=== PATIENT | male | born 1940 | race Caucasian/White ===

== ENCOUNTER 2018-01-31 11:17 | Emergency (ER) | payer OTHER ==
[2018-01-31 19:35] LABS: ADD MAN DIFF? NO
[2018-01-31 19:36] LABS: ABNORMAL IP MESSAGE 1; BASOPHILS % 0.5 % (0.0-2.0); HEMATOCRIT 45.1 % (42.0-52.0); HEMOGLOBIN 15.2 g/dl (14.0-18.0); LYMPHOCYTES # 0.6 10^3/ul (0.8-2.9); LYMPHOCYTES % 13.6 % (15.0-51.0); MEAN CORPUSCULAR HEMOGLOBIN 30.5 pg (29.0-33.0); MEAN CORPUSCULAR HGB CONC 33.7 g/dl (32.0-37.0); MEAN CORPUSCULAR VOLUME 90.4 fl (82.0-101.0); MEAN PLATELET VOLUME 11.1 fl (7.4-10.4); MONOCYTE # 0.6 10^3/ul (0.3-0.9); MONOCYTES % 12.6 % (0.0-11.0); NEUTROPHIL # 3.1 10^3/ul (1.6-7.5); NEUTROPHILS % 71.2 % (39.0-77.0); PLATELET COUNT 134 10^3/UL (140-415); POSITIVE DIFF @See below; RED BLOOD COUNT 4.99 10^6/ul (4.70-6.10); RED CELL DISTRIBUTION WIDTH 12.8 % (11.5-14.5)
[2018-01-31 19:36] LABS: WHITE BLOOD COUNT 4.4 10^3/ul (4.8-10.8)
[2018-01-31] MEDS: morphine 4 MG/ML VIAL IV (19:41)
[2018-01-31] MEDS: SOD CHLORIDE 0.9% 1,000 ML IV (19:42)
[2018-01-31 19:52] LABS: INR 0.94; PROTIME 12.7 Sec (11.9-14.9)
[2018-01-31 19:53] LABS: PARTIAL THROMBOPLASTIN TIME 32.3 Sec (25.0-35.0)
[2018-01-31 20:00] LABS: LACTIC ACID 1.6 mmol/L (0.5-2.0)
[2018-01-31 20:00] LABS: ANION GAP 17 (8-16); BLOOD UREA NITROGEN 34 mg/dl (7-20); CALCIUM 8.9 mg/dl (8.4-10.2); CARBON DIOXIDE 25 mmol/L (21-31); CHLORIDE 105 mmol/L (97-110); CREATININE 1.31 mg/dl (0.61-1.24); GLUCOSE 87 mg/dl (70-220); POTASSIUM 4.3 mmol/L (3.5-5.1); SODIUM 143 mmol/L (135-144)
[2018-01-31] MEDS: PIPER-TAZO 3.375 GM IV (PMX) 100 ML IVPB (21:01)
[2018-01-31] MEDS: SOD CHLORIDE 0.9% 100 ML (21:34)
[2018-01-31] MEDS: IODIXANOL LOCM 100 ML BTL (21:34)
[2018-01-31] MEDS: IODIXANOL LOCM 50 ML BTL (21:35)
[2018-01-31] MEDS: VANCOMYCIN 1 GM (PMX) 250 ML IVPB (21:57)
[2018-01-31 22:55] LABS: LACTIC ACID 1.3 mmol/L (0.5-2.0)
== END 2018-02-01 01:10 | disposition home or self-care (01) ==
LOC: E/R 02-01 01:10
DX: I73.9 Peripheral vascular disease, unspecified (principal); N28.9 Disorder of kidney and ureter, unspecified; I10 Essential (primary) hypertension
CPT/HCPCS: 36415; 73706; 80048; 82962; 83605; 85025; 85610; 85730; 87040; 93005; 96374; 96375; 99285-25

== ENCOUNTER → 2018-03-08 | Day surgery (SDC) | payer OTHER ==
[~2018-03-08] MED LIST: FENTAnyl 50 MCG/ML VIAL; HEPARIN 1000 UNITS/ML 10 ML INJ; IODIXANOL LOCM 100 ML BTL; IODIXANOL LOCM 50 ML BTL; LIDOCAINE 1% (MDV) 20 ML INJ; MIDAZOLAM 1 MG/ML 2 ML INJ; SOD CHLORIDE 0.9% 1,000 ML IV
[2018-03-08 06:54] LABS: ADD MAN DIFF? NO
[2018-03-08 07:02] LABS: ADD UMIC NO; UR ASCORBIC ACID NEGATIVE (NEGATIVE); UR BILIRUBIN (Dip) NEGATIVE (NEGATIVE); UR BLOOD (Dip) NEGATIVE (NEGATIVE); UR CLARITY CLEAR (CLEAR); UR COLOR STRAW (YELLOW); UR GLUCOSE (Dip) NEGATIVE (NEGATIVE); UR KETONES (Dip) NEGATIVE (NEGATIVE); UR LEUKOCYTE ESTERASE (Dip) NEGATIVE Leu/ul (NEGATIVE); UR NITRITE (Dip) NEGATIVE (NEGATIVE); UR SPECIFIC GRAVITY (Dip) 1.008 (1.003-1.030); UR TOTAL PROTEIN (Dip) NEGATIVE (NEGATIVE); UR UROBILINOGEN (Dip) NEGATIVE (NEGATIVE)
[2018-03-08 07:03] LABS: WHITE BLOOD COUNT 4.5 10^3/ul (4.8-10.8)
[2018-03-08 07:03] LABS: BASOPHILS % 0.7 % (0.0-2.0); HEMOGLOBIN 14.1 g/dl (14.0-18.0); LYMPHOCYTES # 1.2 10^3/ul (0.8-2.9); LYMPHOCYTES % 26.9 % (15.0-51.0); MEAN CORPUSCULAR HEMOGLOBIN 30.3 pg (29.0-33.0); MEAN CORPUSCULAR HGB CONC 32.8 g/dl (32.0-37.0); MEAN CORPUSCULAR VOLUME 92.3 fl (82.0-101.0); MEAN PLATELET VOLUME 11.9 fl (7.4-10.4); MONOCYTE # 0.5 10^3/ul (0.3-0.9); MONOCYTES % 11.2 % (0.0-11.0); NEUTROPHIL # 2.7 10^3/ul (1.6-7.5); NEUTROPHILS % 60.1 % (39.0-77.0); PLATELET COUNT 135 10^3/UL (140-415); RED BLOOD COUNT 4.66 10^6/ul (4.70-6.10); RED CELL DISTRIBUTION WIDTH 13.5 % (11.5-14.5)
[2018-03-08 07:23] LABS: INR 0.99; PROTIME 13.2 Sec (11.9-14.9)
[2018-03-08 07:24] LABS: PARTIAL THROMBOPLASTIN TIME 32.9 Sec (25.0-35.0)
[2018-03-08 07:25] LABS: ANION GAP 16 (8-16); CARBON DIOXIDE 26 mmol/L (21-31); CHLORIDE 108 mmol/L (97-110); GLUCOSE 92 mg/dl (70-220)
[2018-03-08 07:31] LABS: CALCIUM 9.3 mg/dl (8.4-10.2)
[2018-03-08 07:34] LABS: BLOOD UREA NITROGEN 38 mg/dl (7-20); CREATININE 1.48 mg/dl (0.61-1.24); SODIUM 145 mmol/L (135-144)
== END | disposition home or self-care (01) ==
LOC: SDS 05:49
DX: I70.248 Atherosclerosis of native arteries of left leg with ulceration of other part of lower leg (principal); L97.829 Non-pressure chronic ulcer of other part of left lower leg with unspecified severity; I70.201 Unspecified atherosclerosis of native arteries of extremities, right leg; I10 Essential (primary) hypertension; E78.5 Hyperlipidemia, unspecified
CPT/HCPCS: 36216; 71045; 75716; 76937; 80048; 81003; 85025; 85610; 85730

== ENCOUNTER 2018-03-15 00:37 | Emergency (ER) | payer OTHER ==
[2018-03-15] MEDS: SOD CHLORIDE 0.9% 1,000 ML IV (02:05)
[2018-03-15] MEDS: CEFTRIAXONE 1 GM/50 ML (PMX) 50 ML IVPB (02:05)
[2018-03-15 02:34] LABS: ADD MAN DIFF? NO
[2018-03-15 02:36] LABS: BASOPHILS % 0.6 % (0.0-2.0); HEMATOCRIT 41.6 % (42.0-52.0); HEMOGLOBIN 13.8 g/dl (14.0-18.0); MEAN CORPUSCULAR HEMOGLOBIN 30.7 pg (29.0-33.0); MEAN CORPUSCULAR HGB CONC 33.2 g/dl (32.0-37.0); MEAN CORPUSCULAR VOLUME 92.7 fl (82.0-101.0); MEAN PLATELET VOLUME 11.8 fl (7.4-10.4); MONOCYTE # 0.5 10^3/ul (0.3-0.9); MONOCYTES % 11.2 % (0.0-11.0); NEUTROPHIL # 3.2 10^3/ul (1.6-7.5); NEUTROPHILS % 66.8 % (39.0-77.0); PLATELET COUNT 148 10^3/UL (140-415); RED BLOOD COUNT 4.49 10^6/ul (4.70-6.10); RED CELL DISTRIBUTION WIDTH 13.6 % (11.5-14.5)
[2018-03-15 02:36] LABS: WHITE BLOOD COUNT 4.8 10^3/ul (4.8-10.8)
[2018-03-15 02:55] LABS: ALANINE AMINOTRANSFERASE 25 IU/L (13-69); ALBUMIN 3.9 g/dl (3.3-4.9); ALBUMIN/GLOBULIN RATIO 1.34; ALKALINE PHOSPHATASE 95 IU/L (42-121); ANION GAP 15 (8-16); ASPARTATE AMINO TRANSFERASE 20 IU/L (15-46); BILIRUBIN,INDIRECT 0.5 mg/dl (0-1.1); BILIRUBIN,TOTAL 0.5 mg/dl (0.2-1.3); BLOOD UREA NITROGEN 40 mg/dl (7-20); CALCIUM 8.7 mg/dl (8.4-10.2); CARBON DIOXIDE 24 mmol/L (21-31); CHLORIDE 109 mmol/L (97-110); CREATININE 1.66 mg/dl (0.61-1.24); GLUCOSE 97 mg/dl (70-220); POTASSIUM 5.3 mmol/L (3.5-5.1); SODIUM 143 mmol/L (135-144); TOTAL PROTEIN 6.8 g/dl (6.1-8.1)
[2018-03-15 02:56] LABS: INR 0.98; PROTIME 13.1 Sec (11.9-14.9)
[2018-03-15 02:57] LABS: PARTIAL THROMBOPLASTIN TIME 35.9 Sec (25.0-35.0)
[2018-03-15] MEDS: RIVAROXABAN 20 MG TABLET PO (07:58)
== END 2018-03-15 08:11 | disposition home or self-care (01) ==
LOC: FTE 00:37 → E/R 08:11
DX: I82.412 Acute embolism and thrombosis of left femoral vein (principal); L60.0 Ingrowing nail; Z79.82 Long term (current) use of aspirin
CPT/HCPCS: 36415; 73630-LT; 80053; 85025; 85610; 85730; 93971; 96374; 99285-25

== ENCOUNTER 2018-05-09 10:00 | Day surgery (SDC) | payer OTHER ==
[~2018-05-09 10:00] MED LIST changes: +CEFAZOLIN 2 GM/50 ML (PMX) 50 ML IVPB; -FENTAnyl 50 MCG/ML VIAL; -HEPARIN 1000 UNITS/ML 10 ML INJ; -IODIXANOL LOCM 100 ML BTL; -IODIXANOL LOCM 50 ML BTL; -LIDOCAINE 1% (MDV) 20 ML INJ; -MIDAZOLAM 1 MG/ML 2 ML INJ; -SOD CHLORIDE 0.9% 1,000 ML IV
[2018-05-09] MEDS ORDERED: FENTAnyl 50 MCG/ML VIAL (10:59)
[2018-05-09] MEDS ORDERED: HEPARIN 1000 UNITS/NS (A-LINE) 1,000 ML (10:59)
[2018-05-09] MEDS ORDERED: IODIXANOL LOCM 100 ML BTL (10:59)
[2018-05-09] MEDS ORDERED: LIDOCAINE 1% (MDV) 10 ML INJ (10:59)
[2018-05-09] MEDS ORDERED: MIDAZOLAM 1 MG/ML 2 ML INJ (10:59)
[2018-05-09] MEDS ORDERED: HEPARIN 1000 UNITS/ML 10 ML INJ (11:24)
[2018-05-09] MEDS ORDERED: SOD CHLORIDE 0.45% 1,000 ML IV (11:48)
== END 2018-05-09 16:10 | disposition home or self-care (01) ==
LOC: SDS 10:00
DX: I70.222 Atherosclerosis of native arteries of extremities with rest pain, left leg (principal)
CPT/HCPCS: 36246; 71045; 75820; 76937

== ENCOUNTER 2018-07-04 06:02 | Inpatient (IN) | payer OTHER ==
[2018-07-04] MEDS: CEFAZOLIN SODIUM 2GM/D5W 50 X1 IVPB (06:30)
[2018-07-04 06:37] LABS: ADD MAN DIFF? NO
[2018-07-04 06:39] LABS: WHITE BLOOD COUNT 5.3 10^3/ul (4.8-10.8)
[2018-07-04 06:39] LABS: BASOPHILS % 0.6 % (0.0-2.0); HEMATOCRIT 47.4 % (42.0-52.0); HEMOGLOBIN 15.7 g/dl (14.0-18.0); LYMPHOCYTES # 1.1 10^3/ul (0.8-2.9); LYMPHOCYTES % 20.8 % (15.0-51.0); MEAN CORPUSCULAR HGB CONC 33.1 g/dl (32.0-37.0); MEAN CORPUSCULAR VOLUME 93.7 fl (82.0-101.0); MEAN PLATELET VOLUME 11.9 fl (7.4-10.4); MONOCYTE # 0.6 10^3/ul (0.3-0.9); MONOCYTES % 10.9 % (0.0-11.0); NEUTROPHIL # 3.5 10^3/ul (1.6-7.5); NEUTROPHILS % 66.7 % (39.0-77.0); PLATELET COUNT 138 10^3/UL (140-415); POSITIVE DIFF @See below; RED BLOOD COUNT 5.06 10^6/ul (4.70-6.10); RED CELL DISTRIBUTION WIDTH 12.7 % (11.5-14.5)
[2018-07-04 06:42] LABS: ADD UMIC NO; UR ASCORBIC ACID NEGATIVE (NEGATIVE); UR BILIRUBIN (Dip) NEGATIVE (NEGATIVE); UR BLOOD (Dip) NEGATIVE (NEGATIVE); UR CLARITY CLEAR (CLEAR); UR COLOR STRAW (YELLOW); UR GLUCOSE (Dip) NEGATIVE (NEGATIVE); UR KETONES (Dip) NEGATIVE (NEGATIVE); UR LEUKOCYTE ESTERASE (Dip) NEGATIVE Leu/ul (NEGATIVE); UR NITRITE (Dip) NEGATIVE (NEGATIVE); UR SPECIFIC GRAVITY (Dip) 1.012 (1.003-1.030); UR TOTAL PROTEIN (Dip) NEGATIVE (NEGATIVE); UR UROBILINOGEN (Dip) NEGATIVE (NEGATIVE)
[2018-07-04] MEDS ORDERED: THROMBIN 5000 UNIT VIAL (06:46)
[2018-07-04] MEDS ORDERED: PAPAVERINE 60 MG INJ (06:47)
[2018-07-04] MEDS ORDERED: HEPARIN 1000 UNITS/ML 10 ML INJ ×2 (06:47→10:20)
[2018-07-04 06:58] LABS: INR 0.92; PROTIME 12.4 Sec (11.9-14.9)
[2018-07-04 06:59] LABS: PARTIAL THROMBOPLASTIN TIME 32.6 Sec (25.0-35.0)
[2018-07-04 07:00] LABS: ALANINE AMINOTRANSFERASE 21 IU/L (13-69); ALBUMIN 4.1 g/dl (3.3-4.9); ALBUMIN/GLOBULIN RATIO 1.24; ALKALINE PHOSPHATASE 99 IU/L (42-121); ANION GAP 16 (8-16); ASPARTATE AMINO TRANSFERASE 23 IU/L (15-46); BILIRUBIN,INDIRECT 0.8 mg/dl (0-1.1); BILIRUBIN,TOTAL 0.8 mg/dl (0.2-1.3); BLOOD UREA NITROGEN 34 mg/dl (7-20); CALCIUM 9.5 mg/dl (8.4-10.2); CARBON DIOXIDE 25 mmol/L (21-31); CHLORIDE 108 mmol/L (97-110); CREATININE 1.58 mg/dl (0.61-1.24); GLUCOSE 104 mg/dl (70-220); POTASSIUM 4.6 mmol/L (3.5-5.1); SODIUM 144 mmol/L (135-144); TOTAL PROTEIN 7.4 g/dl (6.1-8.1)
[2018-07-04] MEDS ORDERED: CEFAZOLIN 1 GM INJ (07:00)
[2018-07-04] MEDS: HEPARIN 1000 UNITS/ML 10 ML INJ IRR (07:05)
[2018-07-04] MEDS: THROMBIN 5000 UNIT VIAL TOP (07:05)
[2018-07-04] MEDS ORDERED: MIDAZOLAM 1 MG/ML 2 ML INJ (07:30)
[2018-07-04] MEDS ORDERED: LACTATED RINGER'S 500 ML, HEPARIN 1,000 UNIT, PAPAVERINE 120 MG IV (07:30)
[2018-07-04] MEDS ORDERED: DEXTRAN-40 10%/D5W 500 ML, HEPARIN 1,000 UNIT, PAPAVERINE 120 MG IV (07:30)
[2018-07-04] MEDS ORDERED: BUPIVACAINE 0.75%/DEXT (SPINAL) 2 ML INJ (07:31)
[2018-07-04] MEDS ORDERED: METOCLOPRAMIDE 10 MG INJ (07:31)
[2018-07-04] MEDS ORDERED: morphine SULFATE/PF (10 MG/10 ML) INJ (07:31)
[2018-07-04] MEDS ORDERED: GELATIN SIZE 100 SPONGE (07:42)
[2018-07-04] MEDS ORDERED: FENTAnyl 50 MCG/ML VIAL (07:49)
[2018-07-04] MEDS ORDERED: hydrALAzine 20 MG INJ IV (10:00)
[2018-07-04] MEDS ORDERED: EPHEDrine 25 MG/5 ML SYG (10:20)
[2018-07-04] MEDS ORDERED: PHENYLephrine (100 MCG/ML) 5ML SYG ×2 (10:58→11:40)
[2018-07-04] MEDS ORDERED: PHENYLephrine 10 MG INJ (11:53)
[2018-07-04] MEDS ORDERED: ETOMIDATE 20 MG INJ (12:39)
[2018-07-04] MEDS ORDERED: ONDANSETRON 4 MG INJ (12:39)
[2018-07-04] MEDS ORDERED: NON-FORMULARY/PATIENT OWN MED (Oxybutynin Chloride* 5 MG) PO (13:00)
[2018-07-04] MEDS ORDERED: HYDROCODONE/APAP (5/325) TAB PO (13:30)
[2018-07-04] MEDS: GABAPENTIN 300 MG CAP PO ×2 (14:06→21:14)
[2018-07-04] MEDS: SOD CHLORIDE 0.9% 1,000 ML IV (14:07)
[2018-07-04] MEDS: CEFAZOLIN 2 GM/50 ML (PMX) 50 ML IVPB ×2 (14:33→23:22)
[2018-07-04] MEDS: OXYBUTYNIN 5 MG TAB PO ×2 (15:15→21:14)
[2018-07-04] MEDS: morphine 2 MG INJ IV ×2 (16:35→21:14)
[2018-07-04] MEDS: LABETALOL HCL 20MG INJ IV (18:28)
[2018-07-04] MEDS: ATORVASTATIN 80 MG TAB PO (21:14)
[2018-07-04] MEDS: HEPARIN 5,000 UNIT/0.5 ML VIAL SC (21:17)
[2018-07-05] MEDS: HYDROCODONE/APAP (5/325) TAB PO ×2 (03:18→15:25)
[2018-07-05] MEDS: HEPARIN 5,000 UNIT/0.5 ML VIAL SC ×3 (05:34→21:25)
[2018-07-05] MEDS: morphine 2 MG INJ IV (05:42)
[2018-07-05] MEDS: SOD CHLORIDE 0.9% 500 ML IV ×2 (06:36→11:36)
[2018-07-05 06:44] LABS: ADD MAN DIFF? NO
[2018-07-05] MEDS: CEFAZOLIN 2 GM/50 ML (PMX) 50 ML IVPB ×2 (06:46→14:39)
[2018-07-05 06:58] LABS: ABNORMAL IP MESSAGE 1; BASOPHILS % 0.2 % (0.0-2.0); HEMOGLOBIN 11.9 g/dl (14.0-18.0); LYMPHOCYTES # 0.5 10^3/ul (0.8-2.9); LYMPHOCYTES % 9.8 % (15.0-51.0); MEAN CORPUSCULAR HEMOGLOBIN 31.1 pg (29.0-33.0); MEAN CORPUSCULAR HGB CONC 32.2 g/dl (32.0-37.0); MEAN CORPUSCULAR VOLUME 96.6 fl (82.0-101.0); MEAN PLATELET VOLUME 12.2 fl (7.4-10.4); MONOCYTE # 0.6 10^3/ul (0.3-0.9); MONOCYTES % 11.8 % (0.0-11.0); NEUTROPHIL # 4.2 10^3/ul (1.6-7.5); NEUTROPHILS % 77.8 % (39.0-77.0); PLATELET COUNT 99 10^3/UL (140-415); POSITIVE DIFF @See below; RED BLOOD COUNT 3.83 10^6/ul (4.70-6.10); RED CELL DISTRIBUTION WIDTH 13.1 % (11.5-14.5)
[2018-07-05 06:58] LABS: WHITE BLOOD COUNT 5.3 10^3/ul (4.8-10.8)
[2018-07-05 07:41] LABS: ANION GAP 11 (8-16); BLOOD UREA NITROGEN 24 mg/dl (7-20); CALCIUM 7.8 mg/dl (8.4-10.2); CARBON DIOXIDE 23 mmol/L (21-31); CHLORIDE 112 mmol/L (97-110); CREATININE 1.48 mg/dl (0.61-1.24); GLUCOSE 107 mg/dl (70-220); MAGNESIUM 1.8 mg/dl (1.7-2.5); POTASSIUM 4.9 mmol/L (3.5-5.1); SODIUM 141 mmol/L (135-144)
[2018-07-05] MEDS: ASPIRIN 81 MG TAB PO (08:06)
[2018-07-05] MEDS: LABETALOL HCL 20MG INJ IV (08:06)
[2018-07-05] MEDS: ALLOPURINOL 100 MG TAB PO (08:06)
[2018-07-05] MEDS: OXYBUTYNIN 5 MG TAB PO ×3 (08:06→21:23)
[2018-07-05] MEDS: GABAPENTIN 300 MG CAP PO ×3 (08:06→21:23)
[2018-07-05] MEDS: TAMSULOSIN (SR) 0.4 MG CAP PO (08:11)
[2018-07-05] MEDS ORDERED: METOPROLOL 5 MG INJ IV (10:00)
[2018-07-05 11:51] LABS: THYROID STIMULATING HORMONE 0.371 MIU/L (0.465-4.680)
[2018-07-05 12:51] LABS: TROPONIN-I < 0.012 ng/ml (0.000-0.120)
[2018-07-05 19:38] LABS: TROPONIN-I < 0.012 ng/ml (0.000-0.120)
[2018-07-05] MEDS: ATORVASTATIN 80 MG TAB PO (21:23)
[2018-07-06 01:12] LABS: TROPONIN-I < 0.012 ng/ml (0.000-0.120)
[2018-07-06 05:00] LABS: ADD MAN DIFF? NO
[2018-07-06 05:04] LABS: ABNORMAL IP MESSAGE 1; BASOPHILS % 0.4 % (0.0-2.0); HEMATOCRIT 34.3 % (42.0-52.0); HEMOGLOBIN 10.9 g/dl (14.0-18.0); LYMPHOCYTES # 0.6 10^3/ul (0.8-2.9); LYMPHOCYTES % 10.8 % (15.0-51.0); MEAN CORPUSCULAR HEMOGLOBIN 30.4 pg (29.0-33.0); MEAN CORPUSCULAR HGB CONC 31.8 g/dl (32.0-37.0); MEAN CORPUSCULAR VOLUME 95.8 fl (82.0-101.0); MEAN PLATELET VOLUME 11.8 fl (7.4-10.4); MONOCYTE # 0.5 10^3/ul (0.3-0.9); MONOCYTES % 9.2 % (0.0-11.0); NEUTROPHIL # 4.5 10^3/ul (1.6-7.5); NEUTROPHILS % 79.2 % (39.0-77.0); PLATELET COUNT 86 10^3/UL (140-415); POSITIVE DIFF @See below; RED BLOOD COUNT 3.58 10^6/ul (4.70-6.10); RED CELL DISTRIBUTION WIDTH 12.9 % (11.5-14.5)
[2018-07-06 05:04] LABS: WHITE BLOOD COUNT 5.7 10^3/ul (4.8-10.8)
[2018-07-06 05:21] LABS: ANION GAP 9 (8-16); BLOOD UREA NITROGEN 27 mg/dl (7-20); CALCIUM 7.7 mg/dl (8.4-10.2); CARBON DIOXIDE 22 mmol/L (21-31); CHLORIDE 113 mmol/L (97-110); CREATININE 1.68 mg/dl (0.61-1.24); GLUCOSE 148 mg/dl (70-220); POTASSIUM 4.4 mmol/L (3.5-5.1); SODIUM 140 mmol/L (135-144)
[2018-07-06 05:26] LABS: CHOLESTEROL 53 mg/dl (100-200)
[2018-07-06 05:26] LABS: CHOL/HDL RATIO 1.6 RATIO; HDL CHOLESTEROL 32 mg/dl (31-75); LDL CHOLESTEROL,CALCULATED 7 mg/dl; TRIGLYCERIDES 71 mg/dl (0-149)
[2018-07-06] MEDS: HEPARIN 5,000 UNIT/0.5 ML VIAL SC (05:39)
[2018-07-06] MEDS: ALLOPURINOL 100 MG TAB PO (08:27)
[2018-07-06] MEDS: OXYBUTYNIN 5 MG TAB PO ×3 (08:27→20:49)
[2018-07-06] MEDS: ASPIRIN 81 MG TAB PO (08:27)
[2018-07-06] MEDS: TAMSULOSIN (SR) 0.4 MG CAP PO (08:27)
[2018-07-06] MEDS: GABAPENTIN 300 MG CAP PO ×3 (08:27→20:49)
[2018-07-06] MEDS ORDERED: FUROSEMIDE 20 MG INJ (10:28)
[2018-07-06] MEDS: FUROSEMIDE 20 MG INJ IV ×2 (11:30)
[2018-07-06] MEDS: ALBUMIN HUMAN 25% 100 ML IV (13:24)
[2018-07-06] MEDS: ACETAMINOPHEN 325 MG TAB PO (14:06)
[2018-07-06] MEDS: HYDROCODONE/APAP (5/325) TAB PO (18:44)
[2018-07-06] MEDS: CEFEPIME 1GM/50 ML (PMX) 50 ML IVPB (20:49)
[2018-07-06] MEDS: ATORVASTATIN 80 MG TAB PO (20:49)
[2018-07-06] MEDS ORDERED: CEFEPIME 1GM/50 ML (PMX) 50 ML IVPB (21:00)
[2018-07-07] MEDS: ACETAMINOPHEN 325 MG TAB PO (00:02)
[2018-07-07] MEDS: SOD CHLORIDE 0.9% 1,000 ML IV ×6 (04:30→22:29)
[2018-07-07 06:13] LABS: ANION GAP 14 (8-16); BLOOD UREA NITROGEN 31 mg/dl (7-20); CALCIUM 7.7 mg/dl (8.4-10.2); CARBON DIOXIDE 16 mmol/L (21-31); CHLORIDE 115 mmol/L (97-110); CREATININE 1.92 mg/dl (0.61-1.24); GLUCOSE 56 mg/dl (70-220); POTASSIUM 3.8 mmol/L (3.5-5.1); SODIUM 141 mmol/L (135-144)
[2018-07-07 06:32] LABS: FREE THYROXINE INDEX (Calc) 2.69 ug/ml (0.65-3.89); T3 UPTAKE 51.7 % (23.5-40.5); T4 (THYROXINE) 5.2 ug/dl (5.5-11.0)
[2018-07-07 06:45] LABS: THYROID STIMULATING HORMONE 0.221 MIU/L (0.465-4.680)
[2018-07-07] MEDS ORDERED: ETOMIDATE 20 MG INJ (07:00)
[2018-07-07] MEDS ORDERED: SUCCINYLCHOLINE CHLORIDE 100 MG/5 ML SYG IV (07:00)
[2018-07-07 07:07] LABS: WHITE BLOOD COUNT 3.6 10^3/ul (4.8-10.8)
[2018-07-07 07:07] LABS: ABNORMAL IP MESSAGE 1; HEMATOCRIT 30.5 % (42.0-52.0); HEMOGLOBIN 9.6 g/dl (14.0-18.0); MEAN CORPUSCULAR HEMOGLOBIN 30.2 pg (29.0-33.0); MEAN CORPUSCULAR HGB CONC 31.5 g/dl (32.0-37.0); MEAN CORPUSCULAR VOLUME 95.9 fl (82.0-101.0); MEAN PLATELET VOLUME 11.9 fl (7.4-10.4); PLATELET COUNT 82 10^3/UL (140-415); POSITIVE DIFF @See below; RED BLOOD COUNT 3.18 10^6/ul (4.70-6.10); RED CELL DISTRIBUTION WIDTH 13.1 % (11.5-14.5)
[2018-07-07] MEDS ORDERED: FUROSEMIDE 20 MG INJ (07:18)
[2018-07-07 07:19] LABS: ADD MAN DIFF? YES
[2018-07-07 07:26] LABS: AADO2 Arterial 99.6 mmHg (7.0-24.0); Allen Test ACCEPTAB; Arterial Base Excess -11.9 mmol/L (-3.0-3); Arterial Blood Gas Oxygen Sat 92.4 mmHG (95.0-100.0); Arterial COHb 0.2 % (0.0-3.0); Arterial HCO3 12.6 mmol/L (22.0-26.0); Arterial MetHb 0.2 % (0.0-1.5); Arterial Total Hemglobin 11.2 g/dl (12.0-18.0); Arterial pCO2 25.1 mmhg (35-45); MODE NASAL CANNULA; Site Right Radial
[2018-07-07] MEDS: FUROSEMIDE 20 MG INJ IV (07:54)
[2018-07-07 08:06] LABS: URIC ACID 6.7 mg/dl (3.1-7.9)
[2018-07-07] MEDS ORDERED: ALBUMIN HUMAN 25% 100 ML (08:21)
[2018-07-07] MEDS: SOD CHLORIDE 0.9% 500 ML IV (08:29)
[2018-07-07] MEDS ORDERED: DEXTROSE 50% 50 ML SYRINGE (08:36)
[2018-07-07] MEDS: DEXTROSE 50% 50 ML SYRINGE IV (08:40)
[2018-07-07] MEDS: OXYBUTYNIN 5 MG TAB PO ×3 (09:00→21:00)
[2018-07-07] MEDS: metroNIDAZOLE 500 MG/NS (PMX) 100 ML IVPB ×3 (09:00→22:33)
[2018-07-07] MEDS: ALLOPURINOL 100 MG TAB PO (09:00)
[2018-07-07] MEDS: ASPIRIN 81 MG TAB PO (09:00)
[2018-07-07] MEDS: GABAPENTIN 300 MG CAP PO ×3 (09:00→21:00)
[2018-07-07] MEDS: TAMSULOSIN (SR) 0.4 MG CAP PO (09:00)
[2018-07-07] MEDS: ALBUMIN HUMAN 25% 100 ML IV ×3 (09:10→21:48)
[2018-07-07 09:15] LABS: BAND NEUTROPHILS #M 1.2 10^3/ul (0.0-0.6); BAND NEUTROPHILS % (M) 36 % (0-4); BASOPHILS % (M) 2 % (0-2); GIANT THROMBO% (M) 4 % (0-0); LYMPHOCYTES #M 0.5 10^3/ul (0.8-2.9); LYMPHOCYTES % (M) 16 % (15-51); METAMYELOCYTES %M 2 % (0-0); MONOCYTE #M 0.1 10^3/ul (0.3-0.9); MONOCYTES % (M) 3 % (0-11); MYELOCYTES % (M) 1 % (0-0); PLATELET ESTIMATE DECREASED; POIKILOCYTOSIS 2+ (0-0); POLYCHROMASIA 1+ (0-0); REACTIVE LYMPHOCYTES #M 0.1 10^3/ul (0.0-0.0); REACTIVE LYMPHOCYTES% (M) 3 % (0-0); SEG NEUT #M 1.4 10^3/ul (1.6-7.5); SEGMENTED NEUTROPHILS (M) % 37 % (39-77); SMUDGE%M 36 % (0-0); SPHEROCYTES 1+ (0-0)
[2018-07-07] MEDS ORDERED: NA BICARBONATE 8.4% 50 ML SYG (09:25)
[2018-07-07] MEDS ORDERED: DEXTROSE 50% 50 ML SYRINGE IV ×2 (09:30)
[2018-07-07] MEDS ORDERED: GLUCAGON 1 MG INJ IM (09:30)
[2018-07-07] MEDS: NA BICARBONATE 8.4% 50 ML SYG IV (09:30)
[2018-07-07] MEDS ORDERED: GLUCOSE GEL 15 GRAM TUBE BUCCAL (09:30)
[2018-07-07] MEDS ORDERED: VANCOMYCIN IV PER PHARMACY XX (09:30)
[2018-07-07] MEDS ORDERED: GLUCOSE GEL 15 GRAM TUBE PO ×2 (09:30)
[2018-07-07] MEDS: SODIUM BICARBONATE (IV ADD) 100 MEQ in DEXTROSE 5% 1,000 ML IV ×2 (09:31→20:13)
[2018-07-07 09:49] LABS: SODIUM,URINE RANDOM 81 mmol/L (30-90)
[2018-07-07 09:53] LABS: CREATININE,URINE RANDOM 121.88 mg/dl (20-370); PROTEIN/CREAT RATIO 0.12 RATIO
[2018-07-07 09:58] LABS: TROPONIN-I 0.088 ng/ml (0.000-0.120)
[2018-07-07] MEDS ORDERED: DEXTROSE 5%-0.45% NACL 1,000 ML IV (10:00)
[2018-07-07 10:01] LABS: LACTIC ACID 4.3 mmol/L (0.5-2.0)
[2018-07-07] MEDS: ALBUTEROL 0.083% (NEB) 2.5 MG/3 ML AMP HHN ×3 (10:12→20:42)
[2018-07-07] MEDS: IPRATROPIUM (NEB) 0.5 MG/2.5 ML AMP HHN ×3 (10:12→20:42)
[2018-07-07 10:31] LABS: IRON 15 ug/dl (35-150)
[2018-07-07 10:32] LABS: CREATINE KINASE 503 IU/L (23-200)
[2018-07-07 10:41] LABS: % IRON SATURATION 7 % SAT (22-52); TOTAL IRON BINDING CAPACITY 202 ug/dl (241-421)
[2018-07-07 10:44] LABS: CK INDEX 0.5; CK-MB 2.71 ng/ml (0.0-2.4); TROPONIN-I 0.086 ng/ml (0.000-0.120)
[2018-07-07] MEDS: VANCOMYCIN 1.75 GM in SOD CHLORIDE 0.9% 500 ML IVPB (10:44)
[2018-07-07 11:10] LABS: AADO2 Arterial 254.3 mmHg (7.0-24.0); Allen Test ACCEPTAB; Arterial Base Excess -8.1 mmol/L (-3.0-3); Arterial Blood Gas Oxygen Sat 99.2 mmHG (95.0-100.0); Arterial COHb 0.3 % (0.0-3.0); Arterial Fraction of Oxyhgb 98.7 % (93.0-99.0); Arterial HCO3 15.7 mmol/L (22.0-26.0); Arterial MetHb 0.2 % (0.0-1.5); Arterial Total Hemglobin 10.8 g/dl (12.0-18.0); Arterial pCO2 26.9 mmhg (35-45); Blood Gas IEPAP 20/8; Blood Gas PS 12; MODE MASK - BIPAP; Site Left Radial
[2018-07-07] MEDS: PHENYLephrine 80 MG in DEXTROSE 5% 492 ML IV ×3 (11:18→21:30)
[2018-07-07 12:06] LABS: LACTIC ACID 4.3 mmol/L (0.5-2.0)
[2018-07-07 14:15] LABS: ALANINE AMINOTRANSFERASE 20 IU/L (13-69); ALBUMIN 2.8 g/dl (3.3-4.9); ALBUMIN/GLOBULIN RATIO 1.33; ALKALINE PHOSPHATASE 45 IU/L (42-121); ANION GAP 14 (8-16); ASPARTATE AMINO TRANSFERASE 48 IU/L (15-46); BILIRUBIN,INDIRECT 1.1 mg/dl (0-1.1); BILIRUBIN,TOTAL 1.2 mg/dl (0.2-1.3); BLOOD UREA NITROGEN 35 mg/dl (7-20); CALCIUM 7.2 mg/dl (8.4-10.2); CARBON DIOXIDE 19 mmol/L (21-31); CHLORIDE 112 mmol/L (97-110); CREATININE 2.39 mg/dl (0.61-1.24); GLUCOSE 148 mg/dl (70-220); POTASSIUM 4.1 mmol/L (3.5-5.1); SODIUM 141 mmol/L (135-144); TOTAL PROTEIN 4.9 g/dl (6.1-8.1)
[2018-07-07] MEDS: ACETAMINOPHEN 650 MG SUPP PR (15:20)
[2018-07-07 16:54] LABS: CREATINE KINASE 764 IU/L (23-200)
[2018-07-07 17:06] LABS: CK INDEX 0.7; CK-MB 5.03 ng/ml (0.0-2.4)
[2018-07-07 17:16] LABS: TROPONIN-I 0.161 ng/ml (0.000-0.120)
[2018-07-07 17:55] LABS: ADD MAN DIFF? NO
[2018-07-07] MEDS ORDERED: SOD CHLORIDE 0.9% 2,480 ML IV (18:00)
[2018-07-07] MEDS: FENTAnyl 50 MCG/ML VIAL IV (18:00)
[2018-07-07] MEDS ORDERED: HEPARIN 1000 UNITS/ML 10 ML INJ IV ×2 (18:00)
[2018-07-07] MEDS: FENTAnyl (DRIP) 1000 mcg/100mL 100 ML IV (18:10)
[2018-07-07 18:29] LABS: ABNORMAL IP MESSAGE 1; HEMATOCRIT 29.7 % (42.0-52.0); HEMOGLOBIN 9.5 g/dl (14.0-18.0); MEAN CORPUSCULAR HEMOGLOBIN 30.8 pg (29.0-33.0); MEAN CORPUSCULAR VOLUME 96.4 fl (82.0-101.0); MEAN PLATELET VOLUME 12.2 fl (7.4-10.4); PLATELET COUNT 72 10^3/UL (140-415); POSITIVE DIFF @See below; RED BLOOD COUNT 3.08 10^6/ul (4.70-6.10); RED CELL DISTRIBUTION WIDTH 13.6 % (11.5-14.5)
[2018-07-07 18:29] LABS: WHITE BLOOD COUNT 10.3 10^3/ul (4.8-10.8)
[2018-07-07 18:46] LABS: RETICULOCYTE RBC 3.15
[2018-07-07 18:46] LABS: RETICULOCYTE COUNT # 0.046 X10^6 (0.020-0.110); RETICULOCYTE COUNT % 1.5 % (0.5-1.5)
[2018-07-07 18:47] LABS: INR 1.42; PROTIME 17.6 Sec (11.9-14.9); PT RATIO 1.4
[2018-07-07 18:48] LABS: PARTIAL THROMBOPLASTIN TIME 38.7 Sec (25.0-35.0)
[2018-07-07 18:50] LABS: IRON 15 ug/dl (35-150)
[2018-07-07 19:00] LABS: % IRON SATURATION 7 % SAT (22-52); TOTAL IRON BINDING CAPACITY 203 ug/dl (241-421)
[2018-07-07 19:08] LABS: LACTATE DEHYDROGENASE 353 IU/L (313-618)
[2018-07-07 19:30] LABS: BAND NEUTROPHILS #M 4.5 10^3/ul (0.0-0.6); BAND NEUTROPHILS % (M) 44 % (0-4); ERYTHROBLAST% (NRBC) (M) 1 % (0-0); LYMPHOCYTES #M 0.8 10^3/ul (0.8-2.9); LYMPHOCYTES % (M) 8 % (15-51); MONOCYTE #M 0.4 10^3/ul (0.3-0.9); MONOCYTES % (M) 4 % (0-11); MYELOCYTES #M 0.3 10^3/ul (0.0-0.0); MYELOCYTES % (M) 3 % (0-0); PLATELET ESTIMATE DECREASED; PROMYELOCYTES #M 0.1 10^3/ul (0-0); PROMYELOCYTES % (M) 1 % (0-0); SEG NEUT #M 4.6 10^3/ul (1.6-7.5); SEGMENTED NEUTROPHILS (M) % 40 % (39-77); SMUDGE%M 1 % (0-0)
[2018-07-07] MEDS: HEPARIN 25000 UNITS/250 ML 250 ML IV (20:08)
[2018-07-07] MEDS: ATORVASTATIN 80 MG TAB PO (21:00)
[2018-07-07] MEDS: CEFEPIME 1GM/50 ML (PMX) 50 ML IVPB (22:33)
[2018-07-07 22:39] LABS: CREATINE KINASE 968 IU/L (23-200)
[2018-07-07 22:43] LABS: LACTIC ACID 4.6 mmol/L (0.5-2.0)
[2018-07-07 22:50] LABS: CK INDEX 0.6
[2018-07-07 22:52] LABS: TROPONIN-I 0.362 ng/ml (0.000-0.120)
[2018-07-08] MEDS: ACETAMINOPHEN 650 MG SUPP PR (01:11)
[2018-07-08] MEDS: PHENYLephrine 80 MG in DEXTROSE 5% 492 ML IV ×5 (02:00→19:30)
[2018-07-08] MEDS: ALBUTEROL 0.083% (NEB) 2.5 MG/3 ML AMP HHN ×4 (02:17→19:57)
[2018-07-08] MEDS: IPRATROPIUM (NEB) 0.5 MG/2.5 ML AMP HHN ×4 (02:17→19:57)
[2018-07-08 04:17] LABS: AADO2 Arterial 324.5 mmHg (7.0-24.0); Allen Test ACCEPTAB; Arterial Base Excess -10.3 mmol/L (-3.0-3); Arterial Base Excess -10.5 mmol/L (-3.0-3); Arterial Blood Gas Oxygen Sat 98.9 mmHG (95.0-100.0); Arterial Blood Gas Oxygen Sat 99.2 mmHG (95.0-100.0); Arterial COHb 0.3 % (0.0-3.0); Arterial Fraction of Oxyhgb 98.3 % (93.0-99.0); Arterial Fraction of Oxyhgb 98.6 % (93.0-99.0); Arterial HCO3 14.5 mmol/L (22.0-26.0); Arterial MetHb 0.3 % (0.0-1.5); Arterial Total Hemglobin 10.2 g/dl (12.0-18.0); Arterial Total Hemglobin 10.8 g/dl (12.0-18.0); Arterial pCO2 26.2 mmhg (35-45); Arterial pCO2 29.3 mmhg (35-45); Blood Gas IEPAP 20/8; Blood Gas PS 12; Blood Gas PS 15; MODE MASK - BIPAP; MODE VENT - AC; Site Left Radial; Site Right Brachial
[2018-07-08] MEDS: SOD CHLORIDE 0.9% 1,000 ML IV ×6 (04:20→20:46)
[2018-07-08 04:46] LABS: POSITIVE DIFF @See below
[2018-07-08] MEDS: ALBUMIN HUMAN 25% 100 ML IV ×3 (04:57→17:16)
[2018-07-08 05:03] LABS: WHITE BLOOD COUNT 9.1 10^3/ul (4.8-10.8)
[2018-07-08 05:03] LABS: HEMATOCRIT 24.8 % (42.0-52.0); HEMOGLOBIN 7.9 g/dl (14.0-18.0); MEAN CORPUSCULAR HGB CONC 31.9 g/dl (32.0-37.0); MEAN CORPUSCULAR VOLUME 97.3 fl (82.0-101.0); PLATELET COUNT 67 10^3/UL (140-415); RED BLOOD COUNT 2.55 10^6/ul (4.70-6.10); RED CELL DISTRIBUTION WIDTH 13.9 % (11.5-14.5)
[2018-07-08 05:04] LABS: ABNORMAL IP MESSAGE 1
[2018-07-08 05:05] LABS: ADD MAN DIFF? YES; INR 1.64; PROTIME 19.8 Sec (11.9-14.9); PT RATIO 1.5
[2018-07-08 05:06] LABS: PARTIAL THROMBOPLASTIN TIME 49.6 Sec (25.0-35.0)
[2018-07-08] MEDS: IOHEXOL 14.3 MG(I)/ML (ADULT) BTL PO (05:30)
[2018-07-08 05:32] LABS: ANION GAP 13 (8-16); BLOOD UREA NITROGEN 33 mg/dl (7-20); CARBON DIOXIDE 18 mmol/L (21-31); CHLORIDE 109 mmol/L (97-110); CREATININE 2.79 mg/dl (0.61-1.24); GLUCOSE 194 mg/dl (70-220); MAGNESIUM 1.2 mg/dl (1.7-2.5); PHOSPHORUS 2.2 mg/dl (2.5-4.9); POTASSIUM 3.1 mmol/L (3.5-5.1); SODIUM 137 mmol/L (135-144)
[2018-07-08 05:35] LABS: LACTIC ACID 3.2 mmol/L (0.5-2.0)
[2018-07-08 05:36] LABS: CALCIUM 5.8 mg/dl (8.4-10.2)
[2018-07-08 06:14] LABS: ADD MAN DIFF? NO
[2018-07-08] MEDS: metroNIDAZOLE 500 MG/NS (PMX) 100 ML IVPB (06:23)
[2018-07-08 06:30] LABS: WHITE BLOOD COUNT 9.8 10^3/ul (4.8-10.8)
[2018-07-08 06:30] LABS: ABNORMAL IP MESSAGE 1; BASOPHIL # 0.1 10^3/ul (0.0-0.1); BASOPHILS % 0.5 % (0.0-2.0); HEMATOCRIT 25.6 % (42.0-52.0); HEMOGLOBIN 8.3 g/dl (14.0-18.0); LYMPHOCYTES # 0.8 10^3/ul (0.8-2.9); LYMPHOCYTES % 8.2 % (15.0-51.0); MEAN CORPUSCULAR HEMOGLOBIN 30.6 pg (29.0-33.0); MEAN CORPUSCULAR HGB CONC 32.4 g/dl (32.0-37.0); MEAN CORPUSCULAR VOLUME 94.5 fl (82.0-101.0); MEAN PLATELET VOLUME 12.9 fl (7.4-10.4); MONOCYTE # 0.5 10^3/ul (0.3-0.9); MONOCYTES % 5.3 % (0.0-11.0); NEUTROPHIL # 7.7 10^3/ul (1.6-7.5); PLATELET COUNT 74 10^3/UL (140-415); POSITIVE DIFF @See below; RED BLOOD COUNT 2.71 10^6/ul (4.70-6.10); RED CELL DISTRIBUTION WIDTH 14.1 % (11.5-14.5)
[2018-07-08 06:38] LABS: PARTIAL THROMBOPLASTIN TIME 46.9 Sec (25.0-35.0)
[2018-07-08 06:58] LABS: LACTIC ACID 3.3 mmol/L (0.5-2.0)
[2018-07-08 07:09] LABS: ANION GAP 13 (8-16); BLOOD UREA NITROGEN 36 mg/dl (7-20); CALCIUM 6.2 mg/dl (8.4-10.2); CARBON DIOXIDE 20 mmol/L (21-31); CHLORIDE 107 mmol/L (97-110); CREATININE 3.19 mg/dl (0.61-1.24); GLUCOSE 199 mg/dl (70-220); MAGNESIUM 1.3 mg/dl (1.7-2.5); PHOSPHORUS 2.2 mg/dl (2.5-4.9); POTASSIUM 3.5 mmol/L (3.5-5.1); SODIUM 136 mmol/L (135-144)
[2018-07-08 08:30] LABS: BAND NEUTROPHILS #M 0.7 10^3/ul (0.0-0.6); BAND NEUTROPHILS % (M) 8 % (0-4); BURR CELLS 1+ (0-0); LYMPHOCYTES #M 1.3 10^3/ul (0.8-2.9); LYMPHOCYTES % (M) 15 % (15-51); MONOCYTES % (M) 1 % (0-11); MYELOCYTES % (M) 1 % (0-0); PLATELET ESTIMATE DECREASED; POIKILOCYTOSIS 1+ (0-0); SEG NEUT #M 6.9 10^3/ul (1.6-7.5); SEGMENTED NEUTROPHILS (M) % 75 % (39-77); SMUDGE%M 4 % (0-0)
[2018-07-08] MEDS: ASPIRIN 81 MG TAB PO (09:00)
[2018-07-08] MEDS: GABAPENTIN 300 MG CAP PO ×3 (09:00→21:00)
[2018-07-08] MEDS: TAMSULOSIN (SR) 0.4 MG CAP PO (09:00)
[2018-07-08] MEDS: ALLOPURINOL 100 MG TAB PO (09:00)
[2018-07-08] MEDS: OXYBUTYNIN 5 MG TAB PO ×3 (09:00→21:00)
[2018-07-08] MEDS: SODIUM BICARBONATE (IV ADD) 100 MEQ in DEXTROSE 5% 1,000 ML IV (09:34)
[2018-07-08] MEDS: HYDROCORTISONE 100 MG INJ IV ×3 (10:20→22:22)
[2018-07-08 10:32] LABS: INR 1.56; PT RATIO 1.5
[2018-07-08] MEDS: CALCIUM GLUCONATE 10% 2 GM in DEXTROSE 5% 100 ML IVPB (10:34)
[2018-07-08 10:49] LABS: PARTIAL THROMBOPLASTIN TIME 48.6 Sec (25.0-35.0)
[2018-07-08 10:52] LABS: FIBRIN SPLIT PRODUCT >10 and <40 ug/ml (<10)
[2018-07-08 10:52] LABS: PLATELET COUNT 77 10^3/UL (140-415)
[2018-07-08 11:11] LABS: THROMBIN TIME 14.8 SEC (13.8-19.1)
[2018-07-08 11:17] LABS: D-DIMER 9894.97 ng/ml (<460)
[2018-07-08 11:52] LABS: ADD UMIC YES; UR ASCORBIC ACID NEGATIVE (NEGATIVE); UR BACTERIA FEW /HPF (NONE SEEN); UR BILIRUBIN (Dip) 1+ mg/dL (NEGATIVE); UR BLOOD (Dip) 3+ mg/dL (NEGATIVE); UR BUDDING YEAST MODERATE /HPF (NONE SEEN); UR CLARITY CLOUDY (CLEAR); UR COLOR AMBER (YELLOW); UR GLUCOSE (Dip) 1+ mg/dL (NEGATIVE); UR KETONES (Dip) TRACE mg/dL (NEGATIVE); UR LEUKOCYTE ESTERASE (Dip) 1+ Leu/ul (NEGATIVE); UR MUCUS FEW /HPF (NONE SEEN); UR NITRITE (Dip) NEGATIVE (NEGATIVE); UR RBC 106 /HPF (0-5); UR SPECIFIC GRAVITY (Dip) 1.027 (1.003-1.030); UR TOTAL PROTEIN (Dip) 2+ mg/dl (NEGATIVE); UR UROBILINOGEN (Dip) NEGATIVE (NEGATIVE); UR WBC 32 /HPF (0-5)
[2018-07-08] MEDS: MAGNESIUM SULFATE 3 GM in DEXTROSE 5% 100 ML IVPB (12:28)
[2018-07-08 12:44] LABS: AADO2 Arterial 183.7 mmHg (7.0-24.0); Arterial Base Excess -8.6 mmol/L (-3.0-3); Arterial Blood Gas Oxygen Sat 98.4 mmHG (95.0-100.0); Arterial COHb 0.3 % (0.0-3.0); Arterial Fraction of Oxyhgb 97.9 % (93.0-99.0); Arterial MetHb 0.2 % (0.0-1.5); Arterial Total Hemglobin 9.9 g/dl (12.0-18.0); Arterial pCO2 35.3 mmhg (35-45); MODE VENT - AC; Site A-Line
[2018-07-08] MEDS ORDERED: DEXTROSE IV (13:00)
[2018-07-08] MEDS ORDERED: NACL IV (13:00)
[2018-07-08] MEDS ORDERED: CALCIUM GLUCONATE IV (13:00)
[2018-07-08] MEDS: CASPOFUNGIN 70 MG in SOD CHLORIDE 0.9% 250 ML IVPB (14:30)
[2018-07-08] MEDS ORDERED: AMIODARONE 150MG/D5W BOLUS 100 ML (14:42)
[2018-07-08] MEDS: AMIODARONE 150MG/D5W BOLUS 100 ML IV (14:51)
[2018-07-08] MEDS ORDERED: AMIODARONE 900 MG in DEXTROSE 5% 482 ML IV (15:30)
[2018-07-08] MEDS ORDERED: AMIODARONE 150MG/D5W BOLUS 100 ML IV (15:30)
[2018-07-08] MEDS: DEXTROSE 5% IVPB ×3 (16:17→22:22)
[2018-07-08] MEDS: CALCIUM GLUCONATE IVPB ×3 (16:17→22:22)
[2018-07-08] MEDS: AMIODARONE 900 MG in DEXTROSE 5% 482 ML IV (16:36)
[2018-07-08] MEDS: DIGOXIN 500 MCG INJ IV (16:50)
[2018-07-08] MEDS: MEROPENEM 500MG/50 ML (PMX) 50 ML IVPB (16:51)
[2018-07-08] MEDS ORDERED: SOD FERRIC GLUC COMPLX 125 MG in SOD CHLORIDE 0.9% 100 ML IVPB (17:00)
[2018-07-08 18:01] LABS: HAPTOGLOBIN 275 mg/dL (43-212)
[2018-07-08 18:04] LABS: AADO2 Arterial 105.7 mmHg (7.0-24.0); Arterial Base Excess -10.6 mmol/L (-3.0-3); Arterial Blood Gas Oxygen Sat 98.8 mmHG (95.0-100.0); Arterial COHb 0.3 % (0.0-3.0); Arterial Fraction of Oxyhgb 98.3 % (93.0-99.0); Arterial HCO3 13.7 mmol/L (22.0-26.0); Arterial MetHb 0.2 % (0.0-1.5); Arterial Total Hemglobin 8.6 g/dl (12.0-18.0); Arterial pCO2 25.5 mmhg (35-45); MODE VENT - AC; Site A-Line
[2018-07-08] MEDS: SOD FERRIC GLUC COMPLX 125 MG in SOD CHLORIDE 0.9% 100 ML IVPB (18:11)
[2018-07-08 18:22] LABS: ALANINE AMINOTRANSFERASE 58 IU/L (13-69); ALBUMIN 3.1 g/dl (3.3-4.9); ALBUMIN/GLOBULIN RATIO 1.55; ALKALINE PHOSPHATASE 50 IU/L (42-121); ANION GAP 18 (8-16); ASPARTATE AMINO TRANSFERASE 144 IU/L (15-46); BILIRUBIN,INDIRECT 0.9 mg/dl (0-1.1); BILIRUBIN,TOTAL 1.8 mg/dl (0.2-1.3); BLOOD UREA NITROGEN 34 mg/dl (7-20); CALCIUM 6.7 mg/dl (8.4-10.2); CARBON DIOXIDE 16 mmol/L (21-31); CHLORIDE 101 mmol/L (97-110); CREATININE 3.36 mg/dl (0.61-1.24); GLUCOSE 281 mg/dl (70-220); POTASSIUM 4.3 mmol/L (3.5-5.1); SODIUM 131 mmol/L (135-144); TOTAL PROTEIN 5.1 g/dl (6.1-8.1)
[2018-07-08 18:30] LABS: PREALBUMIN 6.3 mg/dl (17.6-36.0)
[2018-07-08 18:34] LABS: B-TYPE NATRIURETIC PEPTIDE 27400 PG/ML (0-450)
[2018-07-08] MEDS: FUROSEMIDE 40 MG INJ IV (18:58)
[2018-07-08 19:15] LABS: ERYTHROCYTE SEDIMENTATION RATE 30 mm/Hr (0-20)
[2018-07-08 19:20] LABS: C-REACTIVE PROTEIN 46.4 mg/dl (0.0-0.9)
[2018-07-08 19:37] LABS: COMPLEMENT C4 28 mg/dl (14-44)
[2018-07-08 19:41] LABS: COMPLEMENT C3 < 40 mg/dl (88-165)
[2018-07-08] MEDS: ATORVASTATIN 80 MG TAB PO (21:00)
[2018-07-09] MEDS: SODIUM BICARBONATE (IV ADD) 100 MEQ in DEXTROSE 5% 1,000 ML IV (00:17)
[2018-07-09] MEDS: ALBUMIN HUMAN 25% 100 ML IV ×3 (01:24→16:06)
[2018-07-09] MEDS: PHENYLephrine 80 MG in DEXTROSE 5% 492 ML IV (01:26)
[2018-07-09] MEDS: ALBUTEROL 0.083% (NEB) 2.5 MG/3 ML AMP HHN ×4 (01:50→19:44)
[2018-07-09] MEDS: IPRATROPIUM (NEB) 0.5 MG/2.5 ML AMP HHN ×4 (01:50→19:44)
[2018-07-09] MEDS: CALCIUM GLUCONATE IVPB (03:07)
[2018-07-09] MEDS: DEXTROSE 5% IVPB (03:07)
[2018-07-09 05:13] LABS: ABNORMAL IP MESSAGE 1; HEMATOCRIT 27.8 % (42.0-52.0); HEMOGLOBIN 8.7 g/dl (14.0-18.0); MEAN CORPUSCULAR HEMOGLOBIN 30.4 pg (29.0-33.0); MEAN CORPUSCULAR HGB CONC 31.3 g/dl (32.0-37.0); MEAN CORPUSCULAR VOLUME 97.2 fl (82.0-101.0); MEAN PLATELET VOLUME 12.9 fl (7.4-10.4); NUCLEATED RED BLOOD CELLS% 0.5 /100WBC (0.0-0.0); PLATELET COUNT 67 10^3/UL (140-415); POSITIVE DIFF @See below; RED BLOOD COUNT 2.86 10^6/ul (4.70-6.10); RED CELL DISTRIBUTION WIDTH 14.3 % (11.5-14.5)
[2018-07-09 05:13] LABS: WHITE BLOOD COUNT 11.5 10^3/ul (4.8-10.8)
[2018-07-09 05:15] LABS: ADD MAN DIFF? YES
[2018-07-09 05:26] LABS: AADO2 Arterial 135.9 mmHg (7.0-24.0); Arterial Base Excess -13.8 mmol/L (-3.0-3); Arterial Blood Gas Oxygen Sat 98.2 mmHG (95.0-100.0); Arterial COHb 0.2 % (0.0-3.0); Arterial Fraction of Oxyhgb 97.8 % (93.0-99.0); Arterial HCO3 11.2 mmol/L (22.0-26.0); Arterial MetHb 0.2 % (0.0-1.5); Arterial pCO2 23.9 mmhg (35-45); MODE VENT - AC; Site A-Line
[2018-07-09 05:33] LABS: PHOSPHORUS 4.3 mg/dl (2.5-4.9)
[2018-07-09] MEDS: HYDROCORTISONE 100 MG INJ IV ×3 (05:36→22:25)
[2018-07-09] MEDS: SOD CHLORIDE 0.9% 1,000 ML IV (05:36)
[2018-07-09 05:38] LABS: VANCOMYCIN,RANDOM 8.6 ug/ml
[2018-07-09 05:40] LABS: ALANINE AMINOTRANSFERASE 138 IU/L (13-69); ALBUMIN 3.4 g/dl (3.3-4.9); ALBUMIN/GLOBULIN RATIO 1.61; ALKALINE PHOSPHATASE 60 IU/L (42-121); ANION GAP 23 (8-16); ASPARTATE AMINO TRANSFERASE 448 IU/L (15-46); BILIRUBIN,INDIRECT 1.1 mg/dl (0-1.1); BILIRUBIN,TOTAL 2.1 mg/dl (0.2-1.3); BLOOD UREA NITROGEN 34 mg/dl (7-20); CALCIUM 7.2 mg/dl (8.4-10.2); CARBON DIOXIDE 15 mmol/L (21-31); CHLORIDE 96 mmol/L (97-110); CREATININE 3.55 mg/dl (0.61-1.24); GLUCOSE 290 mg/dl (70-220); MAGNESIUM 1.8 mg/dl (1.7-2.5); POTASSIUM 4.8 mmol/L (3.5-5.1); SODIUM 129 mmol/L (135-144); TOTAL PROTEIN 5.5 g/dl (6.1-8.1)
[2018-07-09 06:54] LABS: LACTIC ACID 7.8 mmol/L (0.5-2.0)
[2018-07-09] MEDS: NA BICARBONATE 8.4% 50 ML SYG IV (08:50)
[2018-07-09] MEDS: GABAPENTIN 300 MG CAP PO ×3 (09:00→21:00)
[2018-07-09] MEDS: OXYBUTYNIN 5 MG TAB PO ×3 (09:00→21:00)
[2018-07-09] MEDS: ASPIRIN 81 MG TAB PO (09:00)
[2018-07-09] MEDS: ALLOPURINOL 100 MG TAB PO (09:00)
[2018-07-09] MEDS: TAMSULOSIN (SR) 0.4 MG CAP PO (09:00)
[2018-07-09] MEDS: FENTAnyl (DRIP) 1000 mcg/100mL 100 ML IV (09:04)
[2018-07-09] MEDS: VANCOMYCIN 1.25 GM in SOD CHLORIDE 0.9% 250 ML IVPB (09:13)
[2018-07-09 09:15] LABS: BAND NEUTROPHILS #M 1.3 10^3/ul (0.0-0.6); BAND NEUTROPHILS % (M) 12 % (0-4); BURR CELLS 2+ (0-0); LYMPHOCYTES #M 0.3 10^3/ul (0.8-2.9); LYMPHOCYTES % (M) 3 % (15-51); METAMYELOCYTES #M 0.1 10^3/ul (0.0-0.0); METAMYELOCYTES %M 1 % (0-0); MONOCYTE #M 0.2 10^3/ul (0.3-0.9); MONOCYTES % (M) 2 % (0-11); OVALOCYTES 1+ (0-0); PLATELET ESTIMATE DECREASED; POIKILOCYTOSIS 2+ (0-0); SEG NEUT #M 9.6 10^3/ul (1.6-7.5); SEGMENTED NEUTROPHILS (M) % 82 % (39-77); SMUDGE%M 42 % (0-0)
[2018-07-09] MEDS: SODIUM BICARBONATE (IV ADD) 150 MEQ in DEXTROSE 5% 850 ML IV ×4 (09:30→20:41)
[2018-07-09] MEDS: CALCITRIOL 1 MCG INJ IV (10:26)
[2018-07-09] MEDS: SOD CHLORIDE 0.9% 500 ML IV ×2 (10:50→23:25)
[2018-07-09] MEDS ORDERED: SOD CHLORIDE 0.9% IV (11:00)
[2018-07-09] MEDS ORDERED: ARGATROBAN IV (11:00)
[2018-07-09] MEDS: FUROSEMIDE 40 MG INJ IV (11:52)
[2018-07-09] MEDS: CALCIUM GLUCONATE 10% 2 GM in DEXTROSE 5% 100 ML IVPB (11:56)
[2018-07-09] MEDS: ACCU-CHEK XX ×2 (12:00→18:00)
[2018-07-09 12:10] LABS: AMPHETAMINE/METHAMPHETAMINE Negative (NEGATIVE); BARBITURATES Negative (NEGATIVE); BENZODIAZEPINES Negative (NEGATIVE); CANNABINOIDS Negative (NEGATIVE); COCAINE Negative (NEGATIVE); OPIATES Positive (NEGATIVE)
[2018-07-09] MEDS ORDERED: DIGOXIN 0.125 MG TAB PO (13:00)
[2018-07-09] MEDS: CASPOFUNGIN 35 MG in SOD CHLORIDE 0.9% 250 ML IVPB (13:55)
[2018-07-09] MEDS: SOD CHLORIDE 0.9% IV (14:08)
[2018-07-09] MEDS: ARGATROBAN IV (14:08)
[2018-07-09] MEDS ORDERED: CASPOFUNGIN 50 MG in SOD CHLORIDE 0.9% 250 ML IVPB (14:30)
[2018-07-09] MEDS: MEROPENEM 1 GM/50ML(PMX) 50 ML IVPB (16:05)
[2018-07-09] MEDS: SOD FERRIC GLUC COMPLX 125 MG in SOD CHLORIDE 0.9% 100 ML IVPB (17:04)
[2018-07-09 18:17] LABS: AADO2 Arterial 93.4 mmHg (7.0-24.0); Arterial Base Excess -7.5 mmol/L (-3.0-3); Arterial Blood Gas Oxygen Sat 96.5 mmHG (95.0-100.0); Arterial COHb 0.3 % (0.0-3.0); Arterial HCO3 15.5 mmol/L (22.0-26.0); Arterial MetHb 0.2 % (0.0-1.5); Arterial Total Hemglobin 10.3 g/dl (12.0-18.0); Arterial pCO2 24.5 mmhg (35-45); MODE VENT - AC; Site A-Line
[2018-07-09 20:29] LABS: PARTIAL THROMBOPLASTIN TIME 139.7 Sec (25.0-35.0)
[2018-07-09] MEDS: ATORVASTATIN 80 MG TAB PO (21:00)
[2018-07-09 21:24] LABS: COLLAGEN/EPI > 249 Secs. (51-198)
[2018-07-09 21:25] LABS: COLLAGEN/ADP > 300 Secs. (40-147)
[2018-07-09] MEDS: LIDOCAINE 1% (MPF) 5 ML VIAL SC (21:55)
[2018-07-09 22:29] LABS: ANION GAP 19 (8-16); BLOOD UREA NITROGEN 42 mg/dl (7-20); CALCIUM 7.4 mg/dl (8.4-10.2); CARBON DIOXIDE 21 mmol/L (21-31); CHLORIDE 95 mmol/L (97-110); CREATININE 3.88 mg/dl (0.61-1.24); GLUCOSE 190 mg/dl (70-220); POTASSIUM 4.2 mmol/L (3.5-5.1); SODIUM 131 mmol/L (135-144)
[2018-07-09 22:55] LABS: PARTIAL THROMBOPLASTIN TIME 158.1 Sec (25.0-35.0)
[2018-07-10] MEDS: FUROSEMIDE 40 MG INJ IV (00:56)
[2018-07-10] MEDS: ALBUMIN HUMAN 25% 100 ML IV ×2 (00:56→22:14)
[2018-07-10] MEDS: IPRATROPIUM (NEB) 0.5 MG/2.5 ML AMP HHN ×4 (01:45→20:12)
[2018-07-10] MEDS: ALBUTEROL 0.083% (NEB) 2.5 MG/3 ML AMP HHN ×4 (01:45→20:12)
[2018-07-10] MEDS: ACCU-CHEK XX ×4 (02:43→17:38)
[2018-07-10 05:13] LABS: AADO2 Arterial 96.9 mmHg (7.0-24.0); Allen Test ACCEPTAB; Arterial Base Excess -5.6 mmol/L (-3.0-3); Arterial Blood Gas Oxygen Sat 96.1 mmHG (95.0-100.0); Arterial COHb 0.3 % (0.0-3.0); Arterial Fraction of Oxyhgb 95.6 % (93.0-99.0); Arterial HCO3 17.6 mmol/L (22.0-26.0); Arterial MetHb 0.2 % (0.0-1.5); Arterial pCO2 27.3 mmhg (35-45); MODE VENT - AC; Site Left Radial
[2018-07-10] MEDS: HYDROCORTISONE 100 MG INJ IV (05:32)
[2018-07-10 05:48] LABS: ABNORMAL IP MESSAGE 1; HEMATOCRIT 26.7 % (42.0-52.0); HEMOGLOBIN 8.5 g/dl (14.0-18.0); MEAN CORPUSCULAR HEMOGLOBIN 30.5 pg (29.0-33.0); MEAN CORPUSCULAR HGB CONC 31.8 g/dl (32.0-37.0); MEAN CORPUSCULAR VOLUME 95.7 fl (82.0-101.0); MEAN PLATELET VOLUME 13.6 fl (7.4-10.4); NUCLEATED RED BLOOD CELLS% 0.9 /100WBC (0.0-0.0); PLATELET COUNT 60 10^3/UL (140-415); POSITIVE DIFF @See below; RED BLOOD COUNT 2.79 10^6/ul (4.70-6.10); RED CELL DISTRIBUTION WIDTH 14.3 % (11.5-14.5)
[2018-07-10 05:56] LABS: ADD MAN DIFF? YES
[2018-07-10 06:21] LABS: IONIZED CALCIUM 0.9 mmol/L (1.1-1.4)
[2018-07-10 06:22] LABS: ANION GAP 20 (8-16); BLOOD UREA NITROGEN 47 mg/dl (7-20); CALCIUM 7.1 mg/dl (8.4-10.2); CARBON DIOXIDE 18 mmol/L (21-31); CHLORIDE 96 mmol/L (97-110); CREATININE 3.89 mg/dl (0.61-1.24); GLUCOSE 193 mg/dl (70-220); POTASSIUM 4.3 mmol/L (3.5-5.1); SODIUM 130 mmol/L (135-144)
[2018-07-10 06:35] LABS: LACTIC ACID 5.3 mmol/L (0.5-2.0)
[2018-07-10] MEDS: MIDAZOLAM 1 MG/ML 2 ML INJ IV ×3 (07:56→20:09)
[2018-07-10 08:34] LABS: ANISOCYTOSIS 1+ (0-0); BAND NEUTROPHILS #M 1.9 10^3/ul (0.0-0.6); BAND NEUTROPHILS % (M) 18 % (0-4); ERYTHROBLAST% (NRBC) (M) 2 % (0-0); LYMPHOCYTES #M 0.3 10^3/ul (0.8-2.9); LYMPHOCYTES % (M) 3 % (15-51); PLATELET ESTIMATE SIG DECREASED; POIKILOCYTOSIS 1+ (0-0); POLYCHROMASIA 1+ (0-0); SEG NEUT #M 8.9 10^3/ul (1.6-7.5); SEGMENTED NEUTROPHILS (M) % 79 % (39-77)
[2018-07-10] MEDS: OXYBUTYNIN 5 MG TAB PO ×3 (09:00→21:00)
[2018-07-10] MEDS: GABAPENTIN 300 MG CAP PO ×3 (09:00→21:00)
[2018-07-10] MEDS: ALLOPURINOL 100 MG TAB PO (09:00)
[2018-07-10] MEDS: TAMSULOSIN (SR) 0.4 MG CAP PO (09:00)
[2018-07-10] MEDS: ASPIRIN 81 MG TAB PO (09:49)
[2018-07-10] MEDS: PROPOFOL 100 ML IV (09:59)
[2018-07-10] MEDS: LIDOCAINE 1% (MPF) 5 ML VIAL SC (10:24)
[2018-07-10] MEDS ORDERED: ALBUMIN HUMAN 25% 100 ML IV ×2 (10:30→15:00)
[2018-07-10] MEDS ORDERED: HEPARIN 1000 UNITS/ML 10 ML INJ CATHETER (10:30)
[2018-07-10] MEDS ORDERED: SODIUM CHLORIDE 0.9% 1L BAG IV (10:30)
[2018-07-10] MEDS ORDERED: MANNITOL 25% 50 ML INJ IV* (11:30)
[2018-07-10 12:46] LABS: LACTIC ACID 3.2 mmol/L (0.5-2.0)
[2018-07-10] MEDS: CASPOFUNGIN 35 MG in SOD CHLORIDE 0.9% 250 ML IVPB (14:37)
[2018-07-10] MEDS: PANTOPRAZOLE IV 80 MG in SOD CHLORIDE 0.9% 100 ML IV ×2 (14:37→23:51)
[2018-07-10 16:18] LABS: HEPATITIS B SURFACE ANTIBODY NEGATIVE (NEGATIVE)
[2018-07-10] MEDS: BUMETANIDE 25 MG in DEXTROSE 5% 150 ML IV (16:46)
[2018-07-10] MEDS: MEROPENEM 1 GM/50ML(PMX) 50 ML IVPB (16:46)
[2018-07-10] MEDS: SOD FERRIC GLUC COMPLX 125 MG in SOD CHLORIDE 0.9% 100 ML IVPB (16:46)
[2018-07-10] MEDS ORDERED: PROPOFOL 100 ML (18:21)
[2018-07-10] MEDS: SODIUM BICARBONATE (IV ADD) 150 MEQ in DEXTROSE 5% 1,000 ML IV (18:57)
[2018-07-10] MEDS: FENTAnyl (DRIP) 1000 mcg/100mL 100 ML IV (20:08)
[2018-07-10 20:49] LABS: HEPATITIS B SURFACE ANTIGEN NEGATIVE (NEGATIVE)
[2018-07-10] MEDS: ATORVASTATIN 80 MG TAB PO (21:00)
[2018-07-11] MEDS: ACCU-CHEK XX ×4 (00:58→17:44)
[2018-07-11] MEDS: ALBUMIN HUMAN 25% 100 ML IV ×4 (01:03→21:31)
[2018-07-11 01:06] LABS: HEPARIN INDUCED PLATELET AB NEGATIVE (NEGATIVE)
[2018-07-11] MEDS: IPRATROPIUM (NEB) 0.5 MG/2.5 ML AMP HHN ×4 (02:36→19:28)
[2018-07-11] MEDS: ALBUTEROL 0.083% (NEB) 2.5 MG/3 ML AMP HHN ×4 (02:36→19:28)
[2018-07-11] MEDS: MIDAZOLAM 1 MG/ML 2 ML INJ IV (03:59)
[2018-07-11 05:26] LABS: ADD MAN DIFF? NO
[2018-07-11 05:34] LABS: WHITE BLOOD COUNT 9.7 10^3/ul (4.8-10.8)
[2018-07-11 05:34] LABS: ABNORMAL IP MESSAGE 1; BASOPHILS % 0.1 % (0.0-2.0); HEMATOCRIT 25.5 % (42.0-52.0); HEMOGLOBIN 8.5 g/dl (14.0-18.0); LYMPHOCYTES # 0.3 10^3/ul (0.8-2.9); MEAN CORPUSCULAR HEMOGLOBIN 30.1 pg (29.0-33.0); MEAN CORPUSCULAR HGB CONC 33.3 g/dl (32.0-37.0); MEAN CORPUSCULAR VOLUME 90.4 fl (82.0-101.0); MEAN PLATELET VOLUME 13.8 fl (7.4-10.4); MONOCYTE # 0.7 10^3/ul (0.3-0.9); MONOCYTES % 7.6 % (0.0-11.0); NEUTROPHIL # 8.5 10^3/ul (1.6-7.5); NEUTROPHILS % 86.8 % (39.0-77.0); NUCLEATED RED BLOOD CELLS # 0.1 10^3/ul (0.0-0.0); NUCLEATED RED BLOOD CELLS% 0.8 /100WBC (0.0-0.0); PLATELET COUNT 56 10^3/UL (140-415); POSITIVE DIFF @See below; RED BLOOD COUNT 2.82 10^6/ul (4.70-6.10); RED CELL DISTRIBUTION WIDTH 14.1 % (11.5-14.5)
[2018-07-11 05:44] LABS: ALANINE AMINOTRANSFERASE 412 IU/L (13-69); ALBUMIN 2.8 g/dl (3.3-4.9); ALBUMIN/GLOBULIN RATIO 1.64; ALKALINE PHOSPHATASE 77 IU/L (42-121); ANION GAP 14 (8-16); ASPARTATE AMINO TRANSFERASE 719 IU/L (15-46); BILIRUBIN,INDIRECT 1.6 mg/dl (0-1.1); BILIRUBIN,TOTAL 3.2 mg/dl (0.2-1.3); BLOOD UREA NITROGEN 72 mg/dl (7-20); CALCIUM 6.6 mg/dl (8.4-10.2); CARBON DIOXIDE 27 mmol/L (21-31); CHLORIDE 94 mmol/L (97-110); CREATININE 3.77 mg/dl (0.61-1.24); GLUCOSE 236 mg/dl (70-220); POTASSIUM 3.3 mmol/L (3.5-5.1); SODIUM 132 mmol/L (135-144); TOTAL PROTEIN 4.5 g/dl (6.1-8.1)
[2018-07-11 05:57] LABS: PROTIME 66.1 Sec (11.9-14.9); PT RATIO 5.2
[2018-07-11 06:07] LABS: INR 7.42; PARTIAL THROMBOPLASTIN TIME 88.6 Sec (25.0-35.0)
[2018-07-11] MEDS: SODIUM BICARBONATE (IV ADD) 150 MEQ in DEXTROSE 5% 1,000 ML IV (06:26)
[2018-07-11 06:54] LABS: PROTIME 68.6 Sec (11.9-14.9); PT RATIO 5.4
[2018-07-11 06:58] LABS: INR 7.77
[2018-07-11 07:28] LABS: AADO2 Arterial 81.5 mmHg (7.0-24.0); Arterial Base Excess 2.2 mmol/L (-3.0-3); Arterial Blood Gas Oxygen Sat 96.8 mmHG (95.0-100.0); Arterial COHb 0.3 % (0.0-3.0); Arterial Fraction of Oxyhgb 96.4 % (93.0-99.0); Arterial HCO3 25.6 mmol/L (22.0-26.0); Arterial MetHb 0.1 % (0.0-1.5); Arterial Total Hemglobin 9.5 g/dl (12.0-18.0); Arterial pCO2 34.7 mmhg (35-45); MODE VENT - AC; Site PUL ART LINE
[2018-07-11 07:30] LABS: CREATINE KINASE 229 IU/L (23-200)
[2018-07-11 07:35] LABS: CK INDEX 0.6; CK-MB 1.29 ng/ml (0.0-2.4)
[2018-07-11] MEDS: PHYTONADIONE 10 MG/ML INJ SC (08:14)
[2018-07-11] MEDS: TAMSULOSIN (SR) 0.4 MG CAP PO (08:24)
[2018-07-11] MEDS: GABAPENTIN 300 MG CAP PO (08:24)
[2018-07-11] MEDS: OXYBUTYNIN 5 MG TAB PO ×3 (08:24→21:31)
[2018-07-11] MEDS: ASPIRIN 81 MG TAB PO (08:24)
[2018-07-11] MEDS: ALLOPURINOL 100 MG TAB PO (08:25)
[2018-07-11 08:57] LABS: LACTIC ACID 1.7 mmol/L (0.5-2.0)
[2018-07-11 09:01] LABS: PHOSPHORUS 4.1 mg/dl (2.5-4.9)
[2018-07-11 09:01] LABS: MAGNESIUM 1.9 mg/dl (1.7-2.5)
[2018-07-11 09:15] LABS: LIPASE 262 U/L (23-300)
[2018-07-11 09:21] LABS: AMYLASE < 30 U/L (11-123)
[2018-07-11] MEDS: PANTOPRAZOLE IV 80 MG in SOD CHLORIDE 0.9% 100 ML IV ×2 (09:22→18:47)
[2018-07-11] MEDS: CALCIUM GLUCONATE 10% 2 GM in DEXTROSE 5% 100 ML IVPB (12:24)
[2018-07-11] MEDS: INSULIN ASPART [NOVOLOG] 3 ML PEN SC ×3 (12:25→21:39)
[2018-07-11 13:18] LABS: ANA SCREEN NEGATIVE (NEGATIVE); ANCA SCREEN NEGATIVE (NEGATIVE)
[2018-07-11] MEDS: BUMETANIDE 25 MG in DEXTROSE 5% 150 ML IV (13:30)
[2018-07-11] MEDS: CASPOFUNGIN 35 MG in SOD CHLORIDE 0.9% 250 ML IVPB (13:34)
[2018-07-11 14:30] LABS: Allen Test ACCEPTAB; Arterial Base Excess 3.9 mmol/L (-3.0-3); Arterial Blood Gas Oxygen Sat 96.8 mmHG (95.0-100.0); Arterial COHb 0.1 % (0.0-3.0); Arterial Fraction of Oxyhgb 96.6 % (93.0-99.0); Arterial HCO3 26.5 mmol/L (22.0-26.0); Arterial MetHb 0.1 % (0.0-1.5); Arterial pCO2 31.6 mmhg (35-45); MODE VENT - AC; Site A-Line
[2018-07-11 14:46] LABS: ANION GAP 14 (8-16); BLOOD UREA NITROGEN 82 mg/dl (7-20); CALCIUM 6.6 mg/dl (8.4-10.2); CARBON DIOXIDE 26 mmol/L (21-31); CHLORIDE 95 mmol/L (97-110); CREATININE 3.56 mg/dl (0.61-1.24); GLUCOSE 223 mg/dl (70-220); SODIUM 132 mmol/L (135-144)
[2018-07-11] MEDS: POTASSIUM CHLORIDE 100 ML IVPB (16:01)
[2018-07-11] MEDS: MEROPENEM 1 GM/50ML(PMX) 50 ML IVPB (16:01)
[2018-07-11] MEDS: SOD FERRIC GLUC COMPLX 125 MG in SOD CHLORIDE 0.9% 100 ML IVPB (17:39)
[2018-07-11 17:51] LABS: MYELOPEROXIDASE ANTIBODY <1.0 AI; PROTEINASE-3 ANTIBODY <1.0 AI
[2018-07-11 18:31] LABS: HAPTOGLOBIN 266 mg/dL (43-212)
[2018-07-11] MEDS: SOD CHLORIDE 0.9% 1,000 ML IV (21:31)
[2018-07-11] MEDS: PHYTONADIONE (1 MG/ML PO SYG) NGT (23:24)
[2018-07-12] MEDS: ACCU-CHEK XX ×6 (00:03→23:59)
[2018-07-12] MEDS: SOD CHLORIDE 0.9% 500 ML IV (00:18)
[2018-07-12] MEDS: INSULIN ASPART [NOVOLOG] 3 ML PEN SC ×6 (01:00→21:56)
[2018-07-12] MEDS: IPRATROPIUM (NEB) 0.5 MG/2.5 ML AMP HHN ×4 (01:12→20:14)
[2018-07-12] MEDS: ALBUTEROL 0.083% (NEB) 2.5 MG/3 ML AMP HHN ×4 (01:12→20:14)
[2018-07-12 01:38] LABS: DRVVT CONFIRMATION NEGATIVE (NEGATIVE); HEXAGONAL PHASE CONFIRMATION WEAKLY POSITIVE (NEGATIVE); THROMBIN CLOTTING TIME 13 sec (13-19)
[2018-07-12] MEDS: ALBUMIN HUMAN 25% 100 ML IV ×3 (02:14→19:10)
[2018-07-12] MEDS: PHYTONADIONE (1 MG/ML PO SYG) NGT ×2 (04:32→19:25)
[2018-07-12] MEDS: SOD CHLORIDE 0.9% 1,000 ML IV ×2 (04:55→14:06)
[2018-07-12 05:20] LABS: WHITE BLOOD COUNT 11.4 10^3/ul (4.8-10.8)
[2018-07-12 05:20] LABS: ABNORMAL IP MESSAGE 1; HEMATOCRIT 25.8 % (42.0-52.0); HEMOGLOBIN 8.7 g/dl (14.0-18.0); MEAN CORPUSCULAR HEMOGLOBIN 30.5 pg (29.0-33.0); MEAN CORPUSCULAR HGB CONC 33.7 g/dl (32.0-37.0); MEAN CORPUSCULAR VOLUME 90.5 fl (82.0-101.0); MEAN PLATELET VOLUME 13.6 fl (7.4-10.4); NUCLEATED RED BLOOD CELLS% 1.5 /100WBC (0.0-0.0); PLATELET COUNT 72 10^3/UL (140-415); POSITIVE DIFF @See below; RED BLOOD COUNT 2.85 10^6/ul (4.70-6.10); RED CELL DISTRIBUTION WIDTH 14.1 % (11.5-14.5)
[2018-07-12 05:24] LABS: ADD MAN DIFF? YES
[2018-07-12] MEDS: PANTOPRAZOLE IV 80 MG in SOD CHLORIDE 0.9% 100 ML IV ×2 (05:26→15:50)
[2018-07-12 05:47] LABS: INR 4.82; PROTIME 46.8 Sec (11.9-14.9); PT RATIO 3.7
[2018-07-12 05:48] LABS: PARTIAL THROMBOPLASTIN TIME 65.5 Sec (25.0-35.0)
[2018-07-12 06:08] LABS: ANION GAP 13 (8-16); BLOOD UREA NITROGEN 78 mg/dl (7-20); CALCIUM 7.1 mg/dl (8.4-10.2); CARBON DIOXIDE 27 mmol/L (21-31); CHLORIDE 98 mmol/L (97-110); CREATININE 3.09 mg/dl (0.61-1.24); GLUCOSE 150 mg/dl (70-220); MAGNESIUM 1.9 mg/dl (1.7-2.5); PHOSPHORUS 3.3 mg/dl (2.5-4.9); SODIUM 135 mmol/L (135-144)
[2018-07-12] MEDS: FENTAnyl (DRIP) 1000 mcg/100mL 100 ML IV (06:17)
[2018-07-12 06:20] LABS: VANCOMYCIN,RANDOM 11.1 ug/ml
[2018-07-12 07:08] LABS: AADO2 Arterial 96.9 mmHg (7.0-24.0); Arterial Blood Gas Oxygen Sat 95.1 mmHG (95.0-100.0); Arterial COHb 0.3 % (0.0-3.0); Arterial Fraction of Oxyhgb 94.8 % (93.0-99.0); Arterial HCO3 26.2 mmol/L (22.0-26.0); Arterial MetHb 0 % (0.0-1.5); Arterial Total Hemglobin 10.2 g/dl (12.0-18.0); Arterial pCO2 34.7 mmhg (35-45); MODE VENT - AC; Site A-Line
[2018-07-12 08:04] LABS: BAND NEUTROPHILS #M 1.1 10^3/ul (0.0-0.6); BAND NEUTROPHILS % (M) 10 % (0-4); ERYTHROBLAST% (NRBC) (M) 6 % (0-0); LYMPHOCYTES #M 0.2 10^3/ul (0.8-2.9); LYMPHOCYTES % (M) 2 % (15-51); METAMYELOCYTES #M 0.1 10^3/ul (0.0-0.0); METAMYELOCYTES %M 1 % (0-0); MONOCYTE #M 0.6 10^3/ul (0.3-0.9); MONOCYTES % (M) 6 % (0-11); PLATELET ESTIMATE SIG DECREASED; SEG NEUT #M 9.4 10^3/ul (1.6-7.5); SEGMENTED NEUTROPHILS (M) % 81 % (39-77); SMUDGE%M 2 % (0-0)
[2018-07-12] MEDS: TAMSULOSIN (SR) 0.4 MG CAP PO (09:00)
[2018-07-12] MEDS ORDERED: POTASSIUM CHLORIDE (SR) 20 MEQ TAB PO (09:34)
[2018-07-12] MEDS: ASPIRIN 81 MG TAB PO (09:45)
[2018-07-12] MEDS: OXYBUTYNIN 5 MG TAB PO ×3 (09:45→20:00)
[2018-07-12] MEDS: ALLOPURINOL 100 MG TAB PO (09:46)
[2018-07-12] MEDS: POTASSIUM CHLORIDE 20 MEQ POWDER FOR ORAL SOLN NGT (11:29)
[2018-07-12] MEDS: POTASSIUM CHLORIDE 50 ML IVPB (12:09)
[2018-07-12] MEDS: CASPOFUNGIN 35 MG in SOD CHLORIDE 0.9% 250 ML IVPB (14:19)
[2018-07-12 15:08] LABS: ALANINE AMINOTRANSFERASE 264 IU/L (13-69); ALBUMIN 2.9 g/dl (3.3-4.9); ALKALINE PHOSPHATASE 174 IU/L (42-121); ANION GAP 17 (8-16); ASPARTATE AMINO TRANSFERASE 465 IU/L (15-46); BILIRUBIN,INDIRECT 2.2 mg/dl (0-1.1); BILIRUBIN,TOTAL 4.8 mg/dl (0.2-1.3); BLOOD UREA NITROGEN 85 mg/dl (7-20); CALCIUM 7.2 mg/dl (8.4-10.2); CARBON DIOXIDE 26 mmol/L (21-31); CHLORIDE 97 mmol/L (97-110); CREATININE 3.13 mg/dl (0.61-1.24); GLUCOSE 161 mg/dl (70-220); POTASSIUM 3.7 mmol/L (3.5-5.1); SODIUM 136 mmol/L (135-144); TOTAL PROTEIN 4.6 g/dl (6.1-8.1)
[2018-07-12 15:24] LABS: AADO2 Arterial 87.8 mmHg (7.0-24.0); Arterial Base Excess 2.3 mmol/L (-3.0-3); Arterial Blood Gas Oxygen Sat 96.4 mmHG (95.0-100.0); Arterial COHb 0.3 % (0.0-3.0); Arterial Fraction of Oxyhgb 95.9 % (93.0-99.0); Arterial HCO3 25.2 mmol/L (22.0-26.0); Arterial MetHb 0.2 % (0.0-1.5); Arterial Total Hemglobin 9.8 g/dl (12.0-18.0); Arterial pCO2 32.6 mmhg (35-45); MODE VENT - AC; Site A-Line
[2018-07-12] MEDS: VANCOMYCIN 1.25 GM in SOD CHLORIDE 0.9% 250 ML IVPB (16:00)
[2018-07-12] MEDS: MEROPENEM 1 GM/50ML(PMX) 50 ML IVPB (17:24)
[2018-07-12] MEDS: SOD FERRIC GLUC COMPLX 125 MG in SOD CHLORIDE 0.9% 100 ML IVPB (19:07)
[2018-07-13] MEDS: INSULIN ASPART [NOVOLOG] 3 ML PEN SC ×6 (01:00→20:26)
[2018-07-13] MEDS: IPRATROPIUM (NEB) 0.5 MG/2.5 ML AMP HHN ×3 (01:47→14:00)
[2018-07-13] MEDS: ALBUTEROL 0.083% (NEB) 2.5 MG/3 ML AMP HHN ×3 (01:47→14:00)
[2018-07-13] MEDS: SOD CHLORIDE 0.9% 1,000 ML IV (02:00)
[2018-07-13] MEDS: ALBUMIN HUMAN 25% 100 ML IV ×2 (02:09→09:08)
[2018-07-13] MEDS: ACCU-CHEK XX ×4 (02:10→18:00)
[2018-07-13] MEDS: PANTOPRAZOLE IV 80 MG in SOD CHLORIDE 0.9% 100 ML IV ×3 (02:10→19:36)
[2018-07-13] MEDS: FENTAnyl (DRIP) 1000 mcg/100mL 100 ML IV (02:14)
[2018-07-13 05:33] LABS: ABNORMAL IP MESSAGE 1; HEMATOCRIT 25.2 % (42.0-52.0); HEMOGLOBIN 8.5 g/dl (14.0-18.0); MEAN CORPUSCULAR HEMOGLOBIN 30.7 pg (29.0-33.0); MEAN CORPUSCULAR HGB CONC 33.7 g/dl (32.0-37.0); MEAN PLATELET VOLUME 13.4 fl (7.4-10.4); PLATELET COUNT 89 10^3/UL (140-415); POSITIVE DIFF @See below; RED BLOOD COUNT 2.77 10^6/ul (4.70-6.10); RED CELL DISTRIBUTION WIDTH 14.3 % (11.5-14.5)
[2018-07-13 05:33] LABS: WHITE BLOOD COUNT 12.1 10^3/ul (4.8-10.8)
[2018-07-13 05:53] LABS: ADD MAN DIFF? YES; INR 2.42; PARTIAL THROMBOPLASTIN TIME 48.1 Sec (25.0-35.0); PT RATIO 2.1
[2018-07-13 06:06] LABS: ALANINE AMINOTRANSFERASE 238 IU/L (13-69); ALBUMIN/GLOBULIN RATIO 1.76; ALKALINE PHOSPHATASE 212 IU/L (42-121); ANION GAP 14 (8-16); ASPARTATE AMINO TRANSFERASE 442 IU/L (15-46); BILIRUBIN,INDIRECT 2.4 mg/dl (0-1.1); BILIRUBIN,TOTAL 4.4 mg/dl (0.2-1.3); BLOOD UREA NITROGEN 93 mg/dl (7-20); CALCIUM 7.5 mg/dl (8.4-10.2); CARBON DIOXIDE 28 mmol/L (21-31); CHLORIDE 99 mmol/L (97-110); CREATININE 2.94 mg/dl (0.61-1.24); GLUCOSE 167 mg/dl (70-220); POTASSIUM 3.4 mmol/L (3.5-5.1); SODIUM 138 mmol/L (135-144); TOTAL PROTEIN 4.7 g/dl (6.1-8.1)
[2018-07-13 07:35] LABS: AADO2 Arterial 90.6 mmHg (7.0-24.0); Arterial Base Excess 2.3 mmol/L (-3.0-3); Arterial Blood Gas Oxygen Sat 96.3 mmHG (95.0-100.0); Arterial COHb 0.3 % (0.0-3.0); Arterial Fraction of Oxyhgb 95.7 % (93.0-99.0); Arterial HCO3 24.9 mmol/L (22.0-26.0); Arterial MetHb 0.3 % (0.0-1.5); Arterial Total Hemglobin 9.1 g/dl (12.0-18.0); Arterial pCO2 31.1 mmhg (35-45); MODE VENT - AC; Site A-Line
[2018-07-13] MEDS: ASPIRIN 81 MG TAB PO (08:46)
[2018-07-13] MEDS: ALLOPURINOL 100 MG TAB PO (08:46)
[2018-07-13] MEDS: OXYBUTYNIN 5 MG TAB PO ×3 (08:46→20:27)
[2018-07-13] MEDS: TAMSULOSIN (SR) 0.4 MG CAP PO (08:47)
[2018-07-13 10:36] LABS: ANISOCYTOSIS 1+ (0-0); BAND NEUTROPHILS #M 0.7 10^3/ul (0.0-0.6); BAND NEUTROPHILS % (M) 6 % (0-4); ERYTHROBLAST% (NRBC) (M) 3 % (0-0); LYMPHOCYTES #M 0.3 10^3/ul (0.8-2.9); LYMPHOCYTES % (M) 3 % (15-51); MICROCYTOSIS 1+ (0-0); MONOCYTE #M 0.1 10^3/ul (0.3-0.9); MONOCYTES % (M) 1 % (0-11); PLATELET ESTIMATE DECREASED; REACTIVE LYMPHOCYTES #M 0.1 10^3/ul (0.0-0.0); REACTIVE LYMPHOCYTES% (M) 1 % (0-0); SEG NEUT #M 10.9 10^3/ul (1.6-7.5); SEGMENTED NEUTROPHILS (M) % 89 % (39-77); SMUDGE%M 26 % (0-0)
[2018-07-13] MEDS: NS + KCL 20 MEQ 1,000 ML IV (11:56)
[2018-07-13 13:06] LABS: HAAIG REFLEX REFLEX FILED
[2018-07-13 13:45] LABS: HEPATITIS B SURFACE ANTIGEN NEGATIVE (NEGATIVE)
[2018-07-13 14:02] LABS: HEPATITIS C VIRAL ANTIBODY NEGATIVE (NEGATIVE)
[2018-07-13] MEDS: CASPOFUNGIN 35 MG in SOD CHLORIDE 0.9% 250 ML IVPB (14:11)
[2018-07-13 15:42] LABS: HEPATITIS B CORE ANTIBODY NEGATIVE (NEGATIVE)
[2018-07-13] MEDS: MEROPENEM 1 GM/50ML(PMX) 50 ML IVPB (16:14)
[2018-07-13 18:47] LABS: COMPLEMENT, TOTAL (CH50) <13 U/mL (31-60)
[2018-07-13] MEDS: ALBUTEROL HFA 8 GM INHALER INH (21:07)
[2018-07-14] MEDS: ACCU-CHEK XX ×5 (00:15→17:23)
[2018-07-14] MEDS: INSULIN ASPART [NOVOLOG] 3 ML PEN SC ×6 (01:00→21:00)
[2018-07-14] MEDS: ALBUTEROL HFA 8 GM INHALER INH ×6 (01:08→21:43)
[2018-07-14] MEDS: NS + KCL 20 MEQ 1,000 ML IV ×2 (01:55→16:39)
[2018-07-14 05:22] LABS: ADD MAN DIFF? NO
[2018-07-14 05:25] LABS: ABNORMAL IP MESSAGE 1; BASOPHILS % 0.2 % (0.0-2.0); HEMATOCRIT 25.2 % (42.0-52.0); HEMOGLOBIN 8.3 g/dl (14.0-18.0); LYMPHOCYTES # 0.7 10^3/ul (0.8-2.9); LYMPHOCYTES % 5.7 % (15.0-51.0); MEAN CORPUSCULAR HEMOGLOBIN 30.3 pg (29.0-33.0); MEAN CORPUSCULAR HGB CONC 32.9 g/dl (32.0-37.0); MEAN PLATELET VOLUME 13.3 fl (7.4-10.4); MONOCYTE # 0.7 10^3/ul (0.3-0.9); MONOCYTES % 6.2 % (0.0-11.0); NEUTROPHIL # 9.3 10^3/ul (1.6-7.5); NEUTROPHILS % 78.6 % (39.0-77.0); NUCLEATED RED BLOOD CELLS% 0.3 /100WBC (0.0-0.0); PLATELET COUNT 100 10^3/UL (140-415); POSITIVE DIFF @See below; RED BLOOD COUNT 2.74 10^6/ul (4.70-6.10); RED CELL DISTRIBUTION WIDTH 14.6 % (11.5-14.5)
[2018-07-14 05:25] LABS: WHITE BLOOD COUNT 11.9 10^3/ul (4.8-10.8)
[2018-07-14 05:45] LABS: INR 1.52; PROTIME 18.6 Sec (11.9-14.9); PT RATIO 1.5
[2018-07-14 05:46] LABS: PARTIAL THROMBOPLASTIN TIME 34.7 Sec (25.0-35.0)
[2018-07-14 05:59] LABS: ALANINE AMINOTRANSFERASE 194 IU/L (13-69); ALKALINE PHOSPHATASE 218 IU/L (42-121); ANION GAP 15 (8-16); ASPARTATE AMINO TRANSFERASE 255 IU/L (15-46); BILIRUBIN,INDIRECT 2.4 mg/dl (0-1.1); BILIRUBIN,TOTAL 3.3 mg/dl (0.2-1.3); BLOOD UREA NITROGEN 106 mg/dl (7-20); CARBON DIOXIDE 30 mmol/L (21-31); CHLORIDE 100 mmol/L (97-110); CREATININE 2.59 mg/dl (0.61-1.24); GLUCOSE 203 mg/dl (70-220); POTASSIUM 3.5 mmol/L (3.5-5.1); SODIUM 141 mmol/L (135-144)
[2018-07-14 06:01] LABS: Arterial Base Excess 5.3 mmol/L (-3.0-3); Arterial Blood Gas Oxygen Sat 95.1 mmHG (95.0-100.0); Arterial COHb 0.1 % (0.0-3.0); Arterial Fraction of Oxyhgb 94.7 % (93.0-99.0); Arterial HCO3 28.6 mmol/L (22.0-26.0); Arterial MetHb 0.3 % (0.0-1.5); Arterial Total Hemglobin 9.3 g/dl (12.0-18.0); Arterial pCO2 36.8 mmhg (35-45); MODE VENT - AC; Site A-Line
[2018-07-14] MEDS: PANTOPRAZOLE IV 80 MG in SOD CHLORIDE 0.9% 100 ML IV ×2 (06:46→16:39)
[2018-07-14] MEDS: TAMSULOSIN (SR) 0.4 MG CAP PO (08:59)
[2018-07-14] MEDS: ASPIRIN 81 MG TAB PO (08:59)
[2018-07-14] MEDS: OXYBUTYNIN 5 MG TAB PO ×3 (08:59→20:57)
[2018-07-14] MEDS: ALLOPURINOL 100 MG TAB PO (08:59)
[2018-07-14] MEDS: BUMETANIDE 1 MG INJ IV (14:08)
[2018-07-14] MEDS: ALBUMIN HUMAN 25% 100 ML IV ×2 (14:08→20:59)
[2018-07-14] MEDS: HEPARIN 5,000 UNIT/0.5 ML VIAL SC ×2 (14:10→21:00)
[2018-07-14] MEDS: CASPOFUNGIN 35 MG in SOD CHLORIDE 0.9% 250 ML IVPB (16:39)
[2018-07-14] MEDS: MEROPENEM 1 GM/50ML(PMX) 50 ML IVPB (16:40)
[2018-07-14] MEDS: HYDROCODONE/APAP (5/325) TAB PO (17:37)
[2018-07-14] MEDS: ACETAMINOPHEN 325 MG TAB PO (20:58)
[2018-07-15] MEDS: INSULIN ASPART [NOVOLOG] 3 ML PEN SC ×6 (01:33→21:20)
[2018-07-15] MEDS: ALBUTEROL HFA 8 GM INHALER INH ×6 (01:35→21:41)
[2018-07-15] MEDS: PANTOPRAZOLE IV 80 MG in SOD CHLORIDE 0.9% 100 ML IV ×2 (03:51→13:31)
[2018-07-15 05:38] LABS: WHITE BLOOD COUNT 6.6 10^3/ul (4.8-10.8)
[2018-07-15 05:38] LABS: ABNORMAL IP MESSAGE 1; HEMATOCRIT 23.3 % (42.0-52.0); HEMOGLOBIN 7.6 g/dl (14.0-18.0); MEAN CORPUSCULAR HEMOGLOBIN 30.9 pg (29.0-33.0); MEAN CORPUSCULAR HGB CONC 32.6 g/dl (32.0-37.0); MEAN CORPUSCULAR VOLUME 94.7 fl (82.0-101.0); MEAN PLATELET VOLUME 13.6 fl (7.4-10.4); PLATELET COUNT 88 10^3/UL (140-415); POSITIVE DIFF @See below; RED BLOOD COUNT 2.46 10^6/ul (4.70-6.10); RED CELL DISTRIBUTION WIDTH 15.3 % (11.5-14.5)
[2018-07-15] MEDS: ALBUMIN HUMAN 25% 100 ML IV ×3 (05:42→21:13)
[2018-07-15 05:52] LABS: INR 1.45; PARTIAL THROMBOPLASTIN TIME 32.3 Sec (25.0-35.0); PROTIME 17.9 Sec (11.9-14.9); PT RATIO 1.4
[2018-07-15 05:54] LABS: ADD MAN DIFF? YES
[2018-07-15 06:00] LABS: MAGNESIUM 1.9 mg/dl (1.7-2.5)
[2018-07-15 06:00] LABS: PHOSPHORUS 3.6 mg/dl (2.5-4.9)
[2018-07-15 06:15] LABS: ALANINE AMINOTRANSFERASE 134 IU/L (13-69); ALBUMIN 3.1 g/dl (3.3-4.9); ALBUMIN/GLOBULIN RATIO 1.72; ALKALINE PHOSPHATASE 149 IU/L (42-121); ANION GAP 13 (8-16); ASPARTATE AMINO TRANSFERASE 111 IU/L (15-46); BILIRUBIN,INDIRECT 1.7 mg/dl (0-1.1); BILIRUBIN,TOTAL 1.7 mg/dl (0.2-1.3); BLOOD UREA NITROGEN 106 mg/dl (7-20); CALCIUM 7.9 mg/dl (8.4-10.2); CARBON DIOXIDE 31 mmol/L (21-31); CHLORIDE 105 mmol/L (97-110); GLUCOSE 201 mg/dl (70-220); POTASSIUM 3.5 mmol/L (3.5-5.1); SODIUM 145 mmol/L (135-144); TOTAL PROTEIN 4.9 g/dl (6.1-8.1)
[2018-07-15 06:28] LABS: VANCOMYCIN,RANDOM 9.2 ug/ml
[2018-07-15] MEDS: ASPIRIN 81 MG TAB PO (08:38)
[2018-07-15] MEDS: ALLOPURINOL 100 MG TAB PO (08:38)
[2018-07-15] MEDS: OXYBUTYNIN 5 MG TAB PO ×3 (08:38→21:14)
[2018-07-15] MEDS: TAMSULOSIN (SR) 0.4 MG CAP PO (08:38)
[2018-07-15] MEDS: HEPARIN 5,000 UNIT/0.5 ML VIAL SC ×2 (08:40→21:15)
[2018-07-15] MEDS: VANCOMYCIN 1 GM 250 ML IVPB (09:46)
[2018-07-15] MEDS: LACTATED RINGERS IV ×2 (09:47→22:05)
[2018-07-15] MEDS: POTASSIUM CHLORIDE IV ×2 (09:47→22:05)
[2018-07-15 09:48] LABS: ANISOCYTOSIS 1+ (0-0); BAND NEUTROPHILS #M 0.3 10^3/ul (0.0-0.6); BAND NEUTROPHILS % (M) 5 % (0-4); ERYTHROBLAST% (NRBC) (M) 1 % (0-0); GIANT THROMBO% (M) 1 % (0-0); LYMPHOCYTES #M 0.2 10^3/ul (0.8-2.9); LYMPHOCYTES % (M) 4 % (15-51); MONOCYTE #M 0.1 10^3/ul (0.3-0.9); MONOCYTES % (M) 2 % (0-11); MYELOCYTES % (M) 1 % (0-0); PLATELET ESTIMATE DECREASED; POIKILOCYTOSIS 1+ (0-0); POLYCHROMASIA 1+ (0-0); SEG NEUT #M 5.8 10^3/ul (1.6-7.5); SEGMENTED NEUTROPHILS (M) % 88 % (39-77); SMUDGE%M 23 % (0-0); TARGET CELLS 1+ (0-0)
[2018-07-15] MEDS: PHYTONADIONE 10 MG/ML INJ SC (09:48)
[2018-07-15] MEDS: FINASTERIDE 5 MG TAB GTB (09:49)
[2018-07-15] MEDS: LINAGLIPTIN 5 MG TABLET PO (09:49)
[2018-07-15] MEDS: CASPOFUNGIN 35 MG in SOD CHLORIDE 0.9% 250 ML IVPB (13:32)
[2018-07-15] MEDS: MEROPENEM 1 GM/50ML(PMX) 50 ML IVPB (16:03)
[2018-07-15] MEDS: METOPROLOL 25 MG TAB GTB ×2 (16:04→23:10)
[2018-07-15] MEDS: LANSOPRAZOLE 30 MG CAP NGT (17:27)
[2018-07-15] MEDS: HYDROCODONE/APAP (5/325) TAB PO (21:14)
[2018-07-15] MEDS: MIDAZOLAM 1 MG/ML 2 ML INJ IV (21:52)
[2018-07-15] MEDS: LORAZEPAM 2 MG INJ IV (22:00)
[2018-07-16] MEDS: INSULIN ASPART [NOVOLOG] 3 ML PEN SC ×8 (01:38→20:46)
[2018-07-16] MEDS: ALBUTEROL HFA 8 GM INHALER INH ×6 (01:54→21:35)
[2018-07-16] MEDS: LACTATED RINGERS IV ×2 (02:56→15:30)
[2018-07-16] MEDS: POTASSIUM CHLORIDE IV ×2 (02:56→15:30)
[2018-07-16] MEDS: ALBUMIN HUMAN 25% 100 ML IV (05:08)
[2018-07-16] MEDS: LANSOPRAZOLE 30 MG CAP NGT ×2 (05:27→17:00)
[2018-07-16] MEDS: HEPARIN 5,000 UNIT/0.5 ML VIAL SC ×2 (08:38→20:44)
[2018-07-16] MEDS: TAMSULOSIN (SR) 0.4 MG CAP PO (08:39)
[2018-07-16] MEDS: ACETAMINOPHEN 325 MG TAB PO (08:39)
[2018-07-16] MEDS: ASPIRIN 81 MG TAB PO (08:39)
[2018-07-16] MEDS: FINASTERIDE 5 MG TAB GTB (08:39)
[2018-07-16] MEDS: ALLOPURINOL 100 MG TAB PO (08:39)
[2018-07-16] MEDS: OXYBUTYNIN 5 MG TAB PO ×3 (08:39→20:43)
[2018-07-16] MEDS: METOPROLOL 25 MG TAB GTB ×2 (08:39→20:42)
[2018-07-16] MEDS: LINAGLIPTIN 5 MG TABLET PO (08:40)
[2018-07-16] MEDS: LIDOCAINE 1% (MPF) 5 ML VIAL SC (09:37)
[2018-07-16] MEDS: ACCU-CHEK XX ×2 (11:06→17:04)
[2018-07-16] MEDS: INSULIN GLARGINE [LANTus] (100 UNITS/ML) SYG SC ×2 (11:35→20:45)
[2018-07-16 12:58] LABS: ADD UMIC YES; UR ASCORBIC ACID NEGATIVE (NEGATIVE); UR BILIRUBIN (Dip) NEGATIVE (NEGATIVE); UR BLOOD (Dip) 1+ mg/dL (NEGATIVE); UR CLARITY CLEAR (CLEAR); UR COLOR YELLOW (YELLOW); UR GLUCOSE (Dip) NEGATIVE (NEGATIVE); UR KETONES (Dip) NEGATIVE (NEGATIVE); UR LEUKOCYTE ESTERASE (Dip) NEGATIVE Leu/ul (NEGATIVE); UR NITRITE (Dip) NEGATIVE (NEGATIVE); UR RBC 1 /HPF (0-5); UR SPECIFIC GRAVITY (Dip) 1.014 (1.003-1.030); UR TOTAL PROTEIN (Dip) 1+ mg/dl (NEGATIVE); UR UROBILINOGEN (Dip) NEGATIVE (NEGATIVE); UR WBC 2 /HPF (0-5)
[2018-07-16] MEDS: CASPOFUNGIN 35 MG in SOD CHLORIDE 0.9% 250 ML IVPB (13:59)
[2018-07-16] MEDS: MEROPENEM 1 GM/50ML(PMX) 50 ML IVPB (15:31)
[2018-07-16] MEDS: LINEZOLID 600 MG/D5W (PMX) 300 ML IVPB (16:58)
[2018-07-16 17:55] LABS: ANION GAP 13 (8-16); BLOOD UREA NITROGEN 92 mg/dl (7-20); CALCIUM 8.6 mg/dl (8.4-10.2); CARBON DIOXIDE 30 mmol/L (21-31); CHLORIDE 112 mmol/L (97-110); CREATININE 1.83 mg/dl (0.61-1.24); GLUCOSE 213 mg/dl (70-220); POTASSIUM 3.5 mmol/L (3.5-5.1); SODIUM 151 mmol/L (135-144)
[2018-07-16] MEDS: HYDROCODONE/APAP (5/325) TAB PO (23:51)
[2018-07-17] MEDS: ACCU-CHEK XX ×4 (00:45→17:31)
[2018-07-17] MEDS: ALBUTEROL HFA 8 GM INHALER INH ×6 (01:19→21:54)
[2018-07-17] MEDS: INSULIN ASPART [NOVOLOG] 3 ML PEN SC ×9 (01:25→21:27)
[2018-07-17 05:16] LABS: ADD MAN DIFF? NO
[2018-07-17 05:22] LABS: WHITE BLOOD COUNT 7.9 10^3/ul (4.8-10.8)
[2018-07-17 05:22] LABS: ABNORMAL IP MESSAGE 1; BASOPHILS % 0.1 % (0.0-2.0); HEMATOCRIT 25.6 % (42.0-52.0); HEMOGLOBIN 7.9 g/dl (14.0-18.0); LYMPHOCYTES # 0.3 10^3/ul (0.8-2.9); LYMPHOCYTES % 3.8 % (15.0-51.0); MEAN CORPUSCULAR HEMOGLOBIN 30.9 pg (29.0-33.0); MEAN CORPUSCULAR HGB CONC 30.9 g/dl (32.0-37.0); MEAN PLATELET VOLUME 14.1 fl (7.4-10.4); MONOCYTE # 0.3 10^3/ul (0.3-0.9); MONOCYTES % 3.2 % (0.0-11.0); NEUTROPHIL # 7.2 10^3/ul (1.6-7.5); PLATELET COUNT 99 10^3/UL (140-415); POSITIVE DIFF @See below; RED BLOOD COUNT 2.56 10^6/ul (4.70-6.10); RED CELL DISTRIBUTION WIDTH 16.6 % (11.5-14.5)
[2018-07-17] MEDS: LANSOPRAZOLE 30 MG CAP NGT ×2 (05:37→17:31)
[2018-07-17 05:49] LABS: MAGNESIUM 2.3 mg/dl (1.7-2.5)
[2018-07-17 06:01] LABS: ALANINE AMINOTRANSFERASE 91 IU/L (13-69); ALBUMIN 3.2 g/dl (3.3-4.9); ALBUMIN/GLOBULIN RATIO 1.88; ALKALINE PHOSPHATASE 93 IU/L (42-121); ANION GAP 12 (8-16); ASPARTATE AMINO TRANSFERASE 69 IU/L (15-46); BILIRUBIN,INDIRECT 1.6 mg/dl (0-1.1); BILIRUBIN,TOTAL 1.6 mg/dl (0.2-1.3); BLOOD UREA NITROGEN 94 mg/dl (7-20); CALCIUM 8.5 mg/dl (8.4-10.2); CARBON DIOXIDE 32 mmol/L (21-31); CHLORIDE 114 mmol/L (97-110); CREATININE 1.64 mg/dl (0.61-1.24); GLUCOSE 189 mg/dl (70-220); POTASSIUM 3.8 mmol/L (3.5-5.1); SODIUM 154 mmol/L (135-144); TOTAL PROTEIN 4.9 g/dl (6.1-8.1)
[2018-07-17] MEDS: POTASSIUM CHLORIDE IV (07:51)
[2018-07-17] MEDS: LACTATED RINGERS IV (07:51)
[2018-07-17] MEDS: ACETAMINOPHEN 325 MG TAB PO ×2 (08:31→21:19)
[2018-07-17] MEDS: INSULIN GLARGINE [LANTus] (100 UNITS/ML) SYG SC ×2 (08:32→21:26)
[2018-07-17] MEDS: ASPIRIN 81 MG TAB PO (09:32)
[2018-07-17] MEDS: TAMSULOSIN (SR) 0.4 MG CAP PO (09:33)
[2018-07-17] MEDS: LINAGLIPTIN 5 MG TABLET PO (09:33)
[2018-07-17] MEDS: ALLOPURINOL 100 MG TAB PO (09:33)
[2018-07-17] MEDS: METOPROLOL 25 MG TAB GTB ×2 (09:33→21:20)
[2018-07-17] MEDS: FINASTERIDE 5 MG TAB GTB (09:33)
[2018-07-17] MEDS: HEPARIN 5,000 UNIT/0.5 ML VIAL SC ×2 (09:34→21:25)
[2018-07-17] MEDS: VANCOMYCIN 1 GM 250 ML IVPB (10:53)
[2018-07-17] MEDS: OXYBUTYNIN 5 MG TAB PO ×3 (11:13→21:20)
[2018-07-17] MEDS: FENTAnyl (DRIP) 1000 mcg/100mL 100 ML IV (11:29)
[2018-07-17] MEDS: FUROSEMIDE 20 MG INJ IV (12:48)
[2018-07-17] MEDS: 1/2 NS + KCL 20 MEQ 1,000 ML IV (14:10)
[2018-07-17] MEDS: MEROPENEM 1 GM/50ML(PMX) 50 ML IVPB ×2 (14:11→23:45)
[2018-07-17] MEDS: CASPOFUNGIN 35 MG in SOD CHLORIDE 0.9% 250 ML IVPB (14:49)
[2018-07-18] MEDS: ACCU-CHEK XX ×4 (00:46→18:01)
[2018-07-18] MEDS: INSULIN ASPART [NOVOLOG] 3 ML PEN SC ×9 (01:12→20:23)
[2018-07-18] MEDS: ALBUTEROL HFA 8 GM INHALER INH ×4 (01:19→13:00)
[2018-07-18] MEDS: 1/2 NS + KCL 20 MEQ 1,000 ML IV ×2 (05:19→19:25)
[2018-07-18] MEDS: LANSOPRAZOLE 30 MG CAP NGT (05:19)
[2018-07-18] MEDS: ACETAMINOPHEN 325 MG TAB PO ×2 (05:20→08:45)
[2018-07-18 05:25] LABS: ADD MAN DIFF? NO
[2018-07-18 05:35] LABS: WHITE BLOOD COUNT 3.9 10^3/ul (4.8-10.8)
[2018-07-18 05:35] LABS: ABNORMAL IP MESSAGE 1; BASOPHILS % 0.5 % (0.0-2.0); HEMATOCRIT 26.7 % (42.0-52.0); HEMOGLOBIN 8.1 g/dl (14.0-18.0); LYMPHOCYTES # 0.4 10^3/ul (0.8-2.9); LYMPHOCYTES % 9.6 % (15.0-51.0); MEAN CORPUSCULAR HEMOGLOBIN 30.6 pg (29.0-33.0); MEAN CORPUSCULAR HGB CONC 30.3 g/dl (32.0-37.0); MEAN CORPUSCULAR VOLUME 100.8 fl (82.0-101.0); MEAN PLATELET VOLUME 14.2 fl (7.4-10.4); MONOCYTE # 0.1 10^3/ul (0.3-0.9); MONOCYTES % 2.1 % (0.0-11.0); NEUTROPHIL # 3.3 10^3/ul (1.6-7.5); NEUTROPHILS % 86.2 % (39.0-77.0); PLATELET COUNT 84 10^3/UL (140-415); POSITIVE DIFF @See below; RED BLOOD COUNT 2.65 10^6/ul (4.70-6.10); RED CELL DISTRIBUTION WIDTH 16.5 % (11.5-14.5)
[2018-07-18 05:56] LABS: ALANINE AMINOTRANSFERASE 85 IU/L (13-69); ALBUMIN 2.5 g/dl (3.3-4.9); ALBUMIN/GLOBULIN RATIO 1.19; ALKALINE PHOSPHATASE 91 IU/L (42-121); ANION GAP 11 (8-16); ASPARTATE AMINO TRANSFERASE 68 IU/L (15-46); BLOOD UREA NITROGEN 94 mg/dl (7-20); CALCIUM 8.1 mg/dl (8.4-10.2); CARBON DIOXIDE 31 mmol/L (21-31); CHLORIDE 113 mmol/L (97-110); CREATININE 1.84 mg/dl (0.61-1.24); GLUCOSE 213 mg/dl (70-220); MAGNESIUM 2.3 mg/dl (1.7-2.5); PHOSPHORUS 2.9 mg/dl (2.5-4.9); POTASSIUM 3.6 mmol/L (3.5-5.1); SODIUM 151 mmol/L (135-144); TOTAL PROTEIN 4.6 g/dl (6.1-8.1)
[2018-07-18 05:58] LABS: VANCOMYCIN,RANDOM 9.1 ug/ml
[2018-07-18] MEDS: INSULIN GLARGINE [LANTus] (100 UNITS/ML) SYG SC ×2 (08:37→20:00)
[2018-07-18] MEDS: HEPARIN 5,000 UNIT/0.5 ML VIAL SC (08:38)
[2018-07-18] MEDS: TAMSULOSIN (SR) 0.4 MG CAP PO (08:41)
[2018-07-18] MEDS: FINASTERIDE 5 MG TAB GTB (08:42)
[2018-07-18] MEDS: LINAGLIPTIN 5 MG TABLET PO (08:42)
[2018-07-18] MEDS: ALLOPURINOL 100 MG TAB PO (08:42)
[2018-07-18] MEDS: OXYBUTYNIN 5 MG TAB PO ×3 (08:42→20:18)
[2018-07-18] MEDS: ASPIRIN 81 MG TAB PO (08:42)
[2018-07-18] MEDS: METOPROLOL 25 MG TAB GTB ×2 (08:44→20:18)
[2018-07-18] MEDS: MEROPENEM 1 GM/50ML(PMX) 50 ML IVPB ×2 (09:23→22:43)
[2018-07-18 10:46] LABS: HEPATITIS B DELTA ANTIBODY NEGATIVE
[2018-07-18 12:37] LABS: AADO2 Arterial 96.4 mmHg (7.0-24.0); Allen Test ACCEPTAB; Arterial Blood Gas Oxygen Sat 94.9 mmHG (95.0-100.0); Arterial COHb 0.5 % (0.0-3.0); Arterial HCO3 28.6 mmol/L (22.0-26.0); Arterial MetHb 0.4 % (0.0-1.5); Arterial Total Hemglobin 8.9 g/dl (12.0-18.0); Arterial pCO2 38.1 mmhg (35-45); Blood Gas PS 10; MODE VENT - CPAP; Site Left Radial
[2018-07-18] MEDS: VANCOMYCIN 1 GM 250 ML IVPB (13:32)
[2018-07-18] MEDS: BALSAM PERU/CASTOR OIL 60 GM TUBE TOP (13:34)
[2018-07-18] MEDS: CASPOFUNGIN 35 MG in SOD CHLORIDE 0.9% 250 ML IVPB (16:38)
[2018-07-18] MEDS: FAMOTIDINE 20 MG INJ IV (18:02)
[2018-07-18] MEDS: ALBUTEROL 0.083% (NEB) 2.5 MG/3 ML AMP HHN ×2 (20:17→21:02)
[2018-07-19] MEDS: ACCU-CHEK XX ×6 (00:50→20:50)
[2018-07-19] MEDS: INSULIN ASPART [NOVOLOG] 3 ML PEN SC ×9 (00:50→20:46)
[2018-07-19] MEDS: ALBUTEROL 0.083% (NEB) 2.5 MG/3 ML AMP HHN ×6 (01:51→20:54)
[2018-07-19] MEDS: 1/2 NS + KCL 20 MEQ 1,000 ML IV (03:52)
[2018-07-19 05:37] LABS: ADD MAN DIFF? NO
[2018-07-19 05:45] LABS: ABNORMAL IP MESSAGE 1; BASOPHILS % 0.3 % (0.0-2.0); HEMATOCRIT 26.5 % (42.0-52.0); LYMPHOCYTES # 0.3 10^3/ul (0.8-2.9); LYMPHOCYTES % 9.2 % (15.0-51.0); MEAN CORPUSCULAR HGB CONC 30.2 g/dl (32.0-37.0); MEAN CORPUSCULAR VOLUME 102.7 fl (82.0-101.0); MEAN PLATELET VOLUME 14.9 fl (7.4-10.4); MONOCYTE # 0.1 10^3/ul (0.3-0.9); MONOCYTES % 3.4 % (0.0-11.0); NEUTROPHIL # 2.8 10^3/ul (1.6-7.5); NEUTROPHILS % 86.2 % (39.0-77.0); PLATELET COUNT 93 10^3/UL (140-415); POSITIVE DIFF @See below; RED BLOOD COUNT 2.58 10^6/ul (4.70-6.10); RED CELL DISTRIBUTION WIDTH 16.4 % (11.5-14.5)
[2018-07-19 05:45] LABS: WHITE BLOOD COUNT 3.3 10^3/ul (4.8-10.8)
[2018-07-19 06:16] LABS: ALANINE AMINOTRANSFERASE 82 IU/L (13-69); ALBUMIN 2.7 g/dl (3.3-4.9); ALBUMIN/GLOBULIN RATIO 1.35; ALKALINE PHOSPHATASE 89 IU/L (42-121); ANION GAP 12 (8-16); ASPARTATE AMINO TRANSFERASE 58 IU/L (15-46); BLOOD UREA NITROGEN 80 mg/dl (7-20); CALCIUM 8.2 mg/dl (8.4-10.2); CARBON DIOXIDE 28 mmol/L (21-31); CHLORIDE 120 mmol/L (97-110); CREATININE 1.61 mg/dl (0.61-1.24); GLUCOSE 135 mg/dl (70-220); SODIUM 156 mmol/L (135-144); TOTAL PROTEIN 4.7 g/dl (6.1-8.1)
[2018-07-19 08:12] LABS: AADO2 Arterial 79.9 mmHg (7.0-24.0); Allen Test ACCEPTAB; Arterial Base Excess 5.3 mmol/L (-3.0-3); Arterial Blood Gas Oxygen Sat 96.1 mmHG (95.0-100.0); Arterial COHb 0.4 % (0.0-3.0); Arterial Fraction of Oxyhgb 95.4 % (93.0-99.0); Arterial HCO3 29.2 mmol/L (22.0-26.0); Arterial MetHb 0.3 % (0.0-1.5); Arterial Total Hemglobin 8.7 g/dl (12.0-18.0); Blood Gas PS 8; MODE MASK - CPAP; Site Left Radial
[2018-07-19] MEDS: INSULIN GLARGINE [LANTus] (100 UNITS/ML) SYG SC ×2 (09:37→20:47)
[2018-07-19] MEDS: MEROPENEM 1 GM/50ML(PMX) 50 ML IVPB ×2 (09:41→20:47)
[2018-07-19] MEDS: METOPROLOL 25 MG TAB GTB ×2 (09:53→20:45)
[2018-07-19] MEDS: ALLOPURINOL 100 MG TAB PO (09:53)
[2018-07-19] MEDS: OXYBUTYNIN 5 MG TAB PO ×3 (09:53→20:45)
[2018-07-19] MEDS: TAMSULOSIN (SR) 0.4 MG CAP PO (09:53)
[2018-07-19] MEDS: FINASTERIDE 5 MG TAB GTB (09:53)
[2018-07-19] MEDS: LINAGLIPTIN 5 MG TABLET PO (09:53)
[2018-07-19] MEDS: ASPIRIN 81 MG TAB PO (09:53)
[2018-07-19] MEDS: BALSAM PERU/CASTOR OIL 60 GM TUBE TOP (09:54)
[2018-07-19] MEDS: FENTAnyl 50 MCG/ML VIAL IV ×2 (11:46→14:14)
[2018-07-19] MEDS: D5W + KCL 20 MEQ 1,000 ML IV (12:15)
[2018-07-19] MEDS: FUROSEMIDE 40 MG INJ IV (12:16)
[2018-07-19] MEDS: VANCOMYCIN 1 GM 250 ML IVPB (14:24)
[2018-07-19] MEDS: FAMOTIDINE 20 MG INJ IV (14:24)
[2018-07-19] MEDS: CASPOFUNGIN 35 MG in SOD CHLORIDE 0.9% 250 ML IVPB (14:25)
[2018-07-19 18:07] LABS: ANION GAP 9 (8-16); BLOOD UREA NITROGEN 75 mg/dl (7-20); CALCIUM 8.3 mg/dl (8.4-10.2); CARBON DIOXIDE 32 mmol/L (21-31); CHLORIDE 118 mmol/L (97-110); CREATININE 1.47 mg/dl (0.61-1.24); GLUCOSE 201 mg/dl (70-220); POTASSIUM 3.7 mmol/L (3.5-5.1); SODIUM 155 mmol/L (135-144)
[2018-07-20] MEDS: D5W + KCL 20 MEQ 1,000 ML IV ×3 (00:50→21:38)
[2018-07-20] MEDS: ACCU-CHEK XX ×7 (01:00→21:00)
[2018-07-20] MEDS: ALBUTEROL 0.083% (NEB) 2.5 MG/3 ML AMP HHN ×6 (01:15→20:38)
[2018-07-20 05:31] LABS: WHITE BLOOD COUNT 2.6 10^3/ul (4.8-10.8)
[2018-07-20 05:31] LABS: ABNORMAL IP MESSAGE 1; ADD MAN DIFF? NO; BASOPHILS % 0.4 % (0.0-2.0); HEMOGLOBIN 7.8 g/dl (14.0-18.0); LYMPHOCYTES # 0.4 10^3/ul (0.8-2.9); LYMPHOCYTES % 14.6 % (15.0-51.0); MEAN CORPUSCULAR HEMOGLOBIN 30.5 pg (29.0-33.0); MEAN CORPUSCULAR VOLUME 101.6 fl (82.0-101.0); MEAN PLATELET VOLUME 14.5 fl (7.4-10.4); MONOCYTE # 0.2 10^3/ul (0.3-0.9); MONOCYTES % 5.8 % (0.0-11.0); NEUTROPHILS % 78.4 % (39.0-77.0); PLATELET COUNT 103 10^3/UL (140-415); POSITIVE DIFF @See below; RED BLOOD COUNT 2.56 10^6/ul (4.70-6.10); RED CELL DISTRIBUTION WIDTH 16.4 % (11.5-14.5)
[2018-07-20 06:07] LABS: INR 1.16; PT RATIO 1.2
[2018-07-20 06:08] LABS: PARTIAL THROMBOPLASTIN TIME 33.2 Sec (25.0-35.0)
[2018-07-20 06:50] LABS: ANION GAP 8 (8-16); BLOOD UREA NITROGEN 64 mg/dl (7-20); CALCIUM 8.4 mg/dl (8.4-10.2); CARBON DIOXIDE 33 mmol/L (21-31); CHLORIDE 121 mmol/L (97-110); GLUCOSE 140 mg/dl (70-220); MAGNESIUM 2.4 mg/dl (1.7-2.5); POTASSIUM 3.8 mmol/L (3.5-5.1); SODIUM 158 mmol/L (135-144)
[2018-07-20] MEDS: FINASTERIDE 5 MG TAB GTB (08:59)
[2018-07-20] MEDS: LINAGLIPTIN 5 MG TABLET PO (09:00)
[2018-07-20] MEDS: ALLOPURINOL 100 MG TAB PO (09:00)
[2018-07-20] MEDS: METOPROLOL 25 MG TAB GTB ×2 (09:00→20:51)
[2018-07-20] MEDS: ASPIRIN 81 MG TAB PO (09:00)
[2018-07-20] MEDS: TAMSULOSIN (SR) 0.4 MG CAP PO (09:00)
[2018-07-20] MEDS: MEROPENEM 1 GM/50ML(PMX) 50 ML IVPB (09:01)
[2018-07-20] MEDS: FUROSEMIDE 40 MG INJ IV (09:36)
[2018-07-20] MEDS: INSULIN ASPART [NOVOLOG] 3 ML PEN SC ×7 (09:47→20:52)
[2018-07-20] MEDS: INSULIN GLARGINE [LANTus] (100 UNITS/ML) SYG SC ×2 (09:47→21:02)
[2018-07-20] MEDS: BALSAM PERU/CASTOR OIL 60 GM TUBE TOP (10:45)
[2018-07-20] MEDS: OXYBUTYNIN 5 MG TAB PO ×3 (11:46→20:51)
[2018-07-20] MEDS ORDERED: CASPOFUNGIN 50 MG in SOD CHLORIDE 0.9% 250 ML IVPB (15:00)
[2018-07-20] MEDS: POLYETHYLENE GLYCOL 17 GM PACKET PO (15:59)
[2018-07-20] MEDS: FAMOTIDINE 20 MG INJ IV (15:59)
[2018-07-21] MEDS: ALBUTEROL 0.083% (NEB) 2.5 MG/3 ML AMP HHN ×5 (00:35→17:47)
[2018-07-21] MEDS: ACCU-CHEK XX ×7 (00:43→21:00)
[2018-07-21] MEDS: FUROSEMIDE 40 MG INJ IV ×2 (05:02→18:24)
[2018-07-21] MEDS: INSULIN ASPART [NOVOLOG] 3 ML PEN SC ×7 (07:35→20:57)
[2018-07-21] MEDS: ALLOPURINOL 100 MG TAB PO (08:48)
[2018-07-21] MEDS: OXYBUTYNIN 5 MG TAB PO ×3 (08:48→20:55)
[2018-07-21] MEDS: ASPIRIN 81 MG TAB PO (08:48)
[2018-07-21] MEDS: FINASTERIDE 5 MG TAB GTB (08:48)
[2018-07-21] MEDS: TAMSULOSIN (SR) 0.4 MG CAP PO (08:49)
[2018-07-21] MEDS: LINAGLIPTIN 5 MG TABLET PO (08:49)
[2018-07-21] MEDS: POLYETHYLENE GLYCOL 17 GM PACKET PO (08:49)
[2018-07-21] MEDS: METOPROLOL 25 MG TAB GTB ×2 (08:49→20:54)
[2018-07-21] MEDS: BALSAM PERU/CASTOR OIL 60 GM TUBE TOP (09:03)
[2018-07-21] MEDS: INSULIN GLARGINE [LANTus] (100 UNITS/ML) SYG SC ×2 (09:11→20:56)
[2018-07-21] MEDS: DOCUSATE SODIUM 100 MG CAP PO ×2 (09:14→20:55)
[2018-07-21 09:18] LABS: ADD MAN DIFF? NO
[2018-07-21 09:22] LABS: ABNORMAL IP MESSAGE 1; BASOPHILS % 0.7 % (0.0-2.0); HEMATOCRIT 27.7 % (42.0-52.0); HEMOGLOBIN 8.2 g/dl (14.0-18.0); LYMPHOCYTES # 0.5 10^3/ul (0.8-2.9); LYMPHOCYTES % 17.9 % (15.0-51.0); MEAN CORPUSCULAR HEMOGLOBIN 29.8 pg (29.0-33.0); MEAN CORPUSCULAR HGB CONC 29.6 g/dl (32.0-37.0); MEAN CORPUSCULAR VOLUME 100.7 fl (82.0-101.0); MEAN PLATELET VOLUME 14.1 fl (7.4-10.4); MONOCYTE # 0.2 10^3/ul (0.3-0.9); MONOCYTES % 6.2 % (0.0-11.0); NEUTROPHIL # 2.2 10^3/ul (1.6-7.5); NEUTROPHILS % 74.5 % (39.0-77.0); PLATELET COUNT 136 10^3/UL (140-415); POSITIVE DIFF @See below; RED BLOOD COUNT 2.75 10^6/ul (4.70-6.10); RED CELL DISTRIBUTION WIDTH 16.2 % (11.5-14.5)
[2018-07-21 09:22] LABS: WHITE BLOOD COUNT 2.9 10^3/ul (4.8-10.8)
[2018-07-21 09:48] LABS: ANION GAP 8 (8-16); BLOOD UREA NITROGEN 48 mg/dl (7-20); CALCIUM 8.4 mg/dl (8.4-10.2); CARBON DIOXIDE 34 mmol/L (21-31); CHLORIDE 113 mmol/L (97-110); CREATININE 1.31 mg/dl (0.61-1.24); GLUCOSE 119 mg/dl (70-220); POTASSIUM 3.9 mmol/L (3.5-5.1); SODIUM 151 mmol/L (135-144)
[2018-07-21] MEDS: DEXTROSE 5% 1,000 ML IV (11:00)
[2018-07-21] MEDS: FAMOTIDINE 20 MG INJ IV ×2 (16:00→16:47)
[2018-07-21] MEDS: ACETAZOLAMIDE 500 MG INJ IV (21:06)
[2018-07-21] MEDS: LEVALBUTEROL (NEB) 0.63 MG/3 ML AMP HHN (21:16)
[2018-07-22] MEDS: ACCU-CHEK XX ×7 (00:03→20:36)
[2018-07-22] MEDS: HEPARIN 5,000 UNIT/0.5 ML VIAL SC ×4 (00:06→21:20)
[2018-07-22] MEDS: LEVALBUTEROL (NEB) 0.63 MG/3 ML AMP HHN ×4 (01:42→19:59)
[2018-07-22 05:19] LABS: ADD MAN DIFF? NO
[2018-07-22] MEDS: FUROSEMIDE 40 MG INJ IV ×2 (05:19→17:05)
[2018-07-22] MEDS: DEXTROSE 5% 1,000 ML IV ×3 (05:19→18:17)
[2018-07-22 05:28] LABS: WHITE BLOOD COUNT 3.2 10^3/ul (4.8-10.8)
[2018-07-22 05:28] LABS: ABNORMAL IP MESSAGE 1; BASOPHILS % 0.6 % (0.0-2.0); HEMATOCRIT 26.4 % (42.0-52.0); HEMOGLOBIN 7.9 g/dl (14.0-18.0); LYMPHOCYTES # 0.6 10^3/ul (0.8-2.9); LYMPHOCYTES % 18.3 % (15.0-51.0); MEAN CORPUSCULAR HEMOGLOBIN 30.5 pg (29.0-33.0); MEAN CORPUSCULAR HGB CONC 29.9 g/dl (32.0-37.0); MEAN CORPUSCULAR VOLUME 101.9 fl (82.0-101.0); MEAN PLATELET VOLUME 13.9 fl (7.4-10.4); MONOCYTE # 0.3 10^3/ul (0.3-0.9); MONOCYTES % 8.4 % (0.0-11.0); NEUTROPHIL # 2.3 10^3/ul (1.6-7.5); NEUTROPHILS % 71.8 % (39.0-77.0); PLATELET COUNT 119 10^3/UL (140-415); POSITIVE DIFF @See below; RED BLOOD COUNT 2.59 10^6/ul (4.70-6.10); RED CELL DISTRIBUTION WIDTH 15.8 % (11.5-14.5)
[2018-07-22 05:56] LABS: ALANINE AMINOTRANSFERASE 106 IU/L (13-69); ALBUMIN 2.6 g/dl (3.3-4.9); ALBUMIN/GLOBULIN RATIO 1.13; ALKALINE PHOSPHATASE 124 IU/L (42-121); ANION GAP 8 (8-16); ASPARTATE AMINO TRANSFERASE 102 IU/L (15-46); BILIRUBIN,INDIRECT 1.2 mg/dl (0-1.1); BILIRUBIN,TOTAL 1.2 mg/dl (0.2-1.3); BLOOD UREA NITROGEN 37 mg/dl (7-20); CALCIUM 8.2 mg/dl (8.4-10.2); CARBON DIOXIDE 32 mmol/L (21-31); CHLORIDE 112 mmol/L (97-110); CREATININE 1.38 mg/dl (0.61-1.24); GLUCOSE 103 mg/dl (70-220); POTASSIUM 3.6 mmol/L (3.5-5.1); SODIUM 148 mmol/L (135-144); TOTAL PROTEIN 4.9 g/dl (6.1-8.1)
[2018-07-22] MEDS: INSULIN ASPART [NOVOLOG] 3 ML PEN SC ×7 (07:53→20:57)
[2018-07-22] MEDS: TAMSULOSIN (SR) 0.4 MG CAP PO (08:41)
[2018-07-22] MEDS: ASPIRIN 81 MG TAB PO (08:41)
[2018-07-22] MEDS: FINASTERIDE 5 MG TAB GTB (08:42)
[2018-07-22] MEDS: OXYBUTYNIN 5 MG TAB PO ×3 (08:42→20:56)
[2018-07-22] MEDS: ALLOPURINOL 100 MG TAB PO (08:42)
[2018-07-22] MEDS: DOCUSATE SODIUM 100 MG CAP PO ×2 (08:42→20:56)
[2018-07-22] MEDS: LINAGLIPTIN 5 MG TABLET PO (08:42)
[2018-07-22] MEDS: METOPROLOL 25 MG TAB GTB (08:42)
[2018-07-22] MEDS: POLYETHYLENE GLYCOL 17 GM PACKET PO (08:42)
[2018-07-22] MEDS: INSULIN GLARGINE [LANTus] (100 UNITS/ML) SYG SC ×2 (09:04→20:00)
[2018-07-22] MEDS: METOPROLOL (XL) 25 MG TAB PO ×2 (09:30→20:56)
[2018-07-22] MEDS: BALSAM PERU/CASTOR OIL 60 GM TUBE TOP (09:56)
[2018-07-22] MEDS: TERBINAFINE 250 MG TAB PO ×2 (10:00→20:55)
[2018-07-22] MEDS ORDERED: AMOXICILLIN/CLAV 875 MG TAB PO (21:00)
[2018-07-23] MEDS: ACCU-CHEK XX ×7 (01:00→20:29)
[2018-07-23] MEDS: DEXTROSE 5% 1,000 ML IV ×3 (01:30→12:21)
[2018-07-23] MEDS: LEVALBUTEROL (NEB) 0.63 MG/3 ML AMP HHN ×4 (01:38→19:42)
[2018-07-23 05:05] LABS: ADD MAN DIFF? NO
[2018-07-23 05:08] LABS: WHITE BLOOD COUNT 2.8 10^3/ul (4.8-10.8)
[2018-07-23 05:08] LABS: ABNORMAL IP MESSAGE 1; BASOPHILS % 0.4 % (0.0-2.0); HEMATOCRIT 24.1 % (42.0-52.0); HEMOGLOBIN 7.3 g/dl (14.0-18.0); LYMPHOCYTES # 0.6 10^3/ul (0.8-2.9); LYMPHOCYTES % 22.3 % (15.0-51.0); MEAN CORPUSCULAR HEMOGLOBIN 30.5 pg (29.0-33.0); MEAN CORPUSCULAR HGB CONC 30.3 g/dl (32.0-37.0); MEAN CORPUSCULAR VOLUME 100.8 fl (82.0-101.0); MEAN PLATELET VOLUME 13.6 fl (7.4-10.4); MONOCYTE # 0.2 10^3/ul (0.3-0.9); MONOCYTES % 7.1 % (0.0-11.0); NEUTROPHILS % 69.1 % (39.0-77.0); PLATELET COUNT 112 10^3/UL (140-415); POSITIVE DIFF @See below; RED BLOOD COUNT 2.39 10^6/ul (4.70-6.10); RED CELL DISTRIBUTION WIDTH 15.8 % (11.5-14.5)
[2018-07-23 05:42] LABS: ANION GAP 8 (8-16); BLOOD UREA NITROGEN 41 mg/dl (7-20); CARBON DIOXIDE 32 mmol/L (21-31); CHLORIDE 107 mmol/L (97-110); CREATININE 1.56 mg/dl (0.61-1.24); GLUCOSE 135 mg/dl (70-220); MAGNESIUM 2.3 mg/dl (1.7-2.5); PHOSPHORUS 4.5 mg/dl (2.5-4.9); POTASSIUM 3.6 mmol/L (3.5-5.1); SODIUM 143 mmol/L (135-144)
[2018-07-23] MEDS: FUROSEMIDE 40 MG INJ IV ×2 (05:53→17:08)
[2018-07-23] MEDS: BISACODYL 10 MG SUPP PR (05:54)
[2018-07-23] MEDS: HEPARIN 5,000 UNIT/0.5 ML VIAL SC ×3 (06:00→21:52)
[2018-07-23] MEDS: INSULIN ASPART [NOVOLOG] 3 ML PEN SC ×7 (07:16→20:25)
[2018-07-23] MEDS: ASPIRIN 81 MG TAB PO (07:57)
[2018-07-23] MEDS: OXYBUTYNIN 5 MG TAB PO ×3 (08:00→20:24)
[2018-07-23] MEDS: DOCUSATE SODIUM 100 MG CAP PO ×2 (08:00→20:24)
[2018-07-23] MEDS: TERBINAFINE 250 MG TAB PO ×2 (08:00→20:24)
[2018-07-23] MEDS: METOPROLOL (XL) 25 MG TAB PO ×2 (08:01→20:25)
[2018-07-23] MEDS: POLYETHYLENE GLYCOL 17 GM PACKET PO (08:01)
[2018-07-23] MEDS: LINAGLIPTIN 5 MG TABLET PO (08:01)
[2018-07-23] MEDS: ALLOPURINOL 100 MG TAB PO (08:01)
[2018-07-23] MEDS: BALSAM PERU/CASTOR OIL 60 GM TUBE TOP (08:01)
[2018-07-23] MEDS: FINASTERIDE 5 MG TAB GTB (08:01)
[2018-07-23] MEDS: TAMSULOSIN (SR) 0.4 MG CAP PO (08:10)
[2018-07-23] MEDS: INSULIN GLARGINE [LANTus] (100 UNITS/ML) SYG SC ×2 (08:10→19:54)
[2018-07-23] MEDS: LACTULOSE 30ML CUP PO (09:54)
[2018-07-23] MEDS: EPOETIN 10000 UNITS/1 ML INJ (ESRD) SC (10:54)
[2018-07-23] MEDS: FAMOTIDINE 20 MG INJ IV (14:38)
[2018-07-23] MEDS: SOD FERRIC GLUC COMPLX 125 MG in SOD CHLORIDE 0.9% 100 ML IVPB (16:21)
[2018-07-24] MEDS: ACCU-CHEK XX ×3 (01:00→05:00)
[2018-07-24] MEDS: LEVALBUTEROL (NEB) 0.63 MG/3 ML AMP HHN ×4 (01:11→20:59)
[2018-07-24] MEDS: DEXTROSE 5% 1,000 ML IV (03:06)
[2018-07-24 05:08] LABS: ADD MAN DIFF? NO
[2018-07-24 05:28] LABS: WHITE BLOOD COUNT 3.2 10^3/ul (4.8-10.8)
[2018-07-24 05:28] LABS: ABNORMAL IP MESSAGE 1; BASOPHILS % 0.3 % (0.0-2.0); HEMATOCRIT 25.2 % (42.0-52.0); HEMOGLOBIN 7.9 g/dl (14.0-18.0); LYMPHOCYTES # 0.8 10^3/ul (0.8-2.9); MEAN CORPUSCULAR HEMOGLOBIN 30.6 pg (29.0-33.0); MEAN CORPUSCULAR HGB CONC 31.3 g/dl (32.0-37.0); MEAN CORPUSCULAR VOLUME 97.7 fl (82.0-101.0); MEAN PLATELET VOLUME 14.4 fl (7.4-10.4); MONOCYTE # 0.3 10^3/ul (0.3-0.9); MONOCYTES % 9.3 % (0.0-11.0); NEUTROPHIL # 2.1 10^3/ul (1.6-7.5); NEUTROPHILS % 63.5 % (39.0-77.0); PLATELET COUNT 121 10^3/UL (140-415); POSITIVE DIFF @See below; RED BLOOD COUNT 2.58 10^6/ul (4.70-6.10); RED CELL DISTRIBUTION WIDTH 15.5 % (11.5-14.5)
[2018-07-24] MEDS: FUROSEMIDE 40 MG INJ IV ×2 (06:10→18:26)
[2018-07-24] MEDS: HEPARIN 5,000 UNIT/0.5 ML VIAL SC ×3 (06:28→21:43)
[2018-07-24 07:08] LABS: ALBUMIN 2.5 g/dl (3.3-4.9); ALBUMIN/GLOBULIN RATIO 1.08; ALKALINE PHOSPHATASE 109 IU/L (42-121); ANION GAP 8 (8-16); ASPARTATE AMINO TRANSFERASE 42 IU/L (15-46); BILIRUBIN,INDIRECT 0.8 mg/dl (0-1.1); BILIRUBIN,TOTAL 0.8 mg/dl (0.2-1.3); BLOOD UREA NITROGEN 38 mg/dl (7-20); CALCIUM 7.9 mg/dl (8.4-10.2); CARBON DIOXIDE 30 mmol/L (21-31); CHLORIDE 108 mmol/L (97-110); GLUCOSE 87 mg/dl (70-220); POTASSIUM 3.6 mmol/L (3.5-5.1); SODIUM 142 mmol/L (135-144); TOTAL PROTEIN 4.8 g/dl (6.1-8.1)
[2018-07-24] MEDS: INSULIN ASPART [NOVOLOG] 3 ML PEN SC ×7 (07:35→21:00)
[2018-07-24] MEDS: INSULIN GLARGINE [LANTus] (100 UNITS/ML) SYG SC ×2 (07:52→20:00)
[2018-07-24 08:05] LABS: ALANINE AMINOTRANSFERASE 80 IU/L (13-69)
[2018-07-24] MEDS: METOPROLOL (XL) 25 MG TAB PO ×2 (09:00→21:28)
[2018-07-24] MEDS: OXYBUTYNIN 5 MG TAB PO ×3 (09:33→21:28)
[2018-07-24] MEDS: TERBINAFINE 250 MG TAB PO ×2 (09:33→21:28)
[2018-07-24] MEDS: POLYETHYLENE GLYCOL 17 GM PACKET PO (09:33)
[2018-07-24] MEDS: ALLOPURINOL 100 MG TAB PO (09:34)
[2018-07-24] MEDS: DOCUSATE SODIUM 100 MG CAP PO ×2 (09:34→21:28)
[2018-07-24] MEDS: FINASTERIDE 5 MG TAB GTB (09:34)
[2018-07-24] MEDS: LINAGLIPTIN 5 MG TABLET PO (09:34)
[2018-07-24] MEDS: TAMSULOSIN (SR) 0.4 MG CAP PO (09:34)
[2018-07-24] MEDS: ASPIRIN 81 MG TAB PO (09:34)
[2018-07-24] MEDS: BALSAM PERU/CASTOR OIL 60 GM TUBE TOP (09:36)
[2018-07-24] MEDS: SOD FERRIC GLUC COMPLX 125 MG in SOD CHLORIDE 0.9% 100 ML IVPB (16:01)
[2018-07-24] MEDS: FAMOTIDINE 20 MG INJ IV (16:01)
[2018-07-25] MEDS: ACCU-CHEK XX (01:41)
[2018-07-25] MEDS: LEVALBUTEROL (NEB) 0.63 MG/3 ML AMP HHN ×4 (02:36→20:12)
[2018-07-25] MEDS: FUROSEMIDE 40 MG INJ IV ×2 (05:26→17:51)
[2018-07-25] MEDS: HEPARIN 5,000 UNIT/0.5 ML VIAL SC ×3 (05:33→22:06)
[2018-07-25] MEDS: DEXTROSE 5% 1,000 ML IV (05:35)
[2018-07-25] MEDS: INSULIN ASPART [NOVOLOG] 3 ML PEN SC ×7 (07:55→21:00)
[2018-07-25] MEDS: TERBINAFINE 250 MG TAB PO ×2 (08:16→23:11)
[2018-07-25] MEDS: LINAGLIPTIN 5 MG TABLET PO (08:16)
[2018-07-25] MEDS: ALLOPURINOL 100 MG TAB PO (08:16)
[2018-07-25] MEDS: TAMSULOSIN (SR) 0.4 MG CAP PO (08:16)
[2018-07-25] MEDS: POLYETHYLENE GLYCOL 17 GM PACKET PO (08:16)
[2018-07-25] MEDS: ASPIRIN 81 MG TAB PO (08:16)
[2018-07-25] MEDS: FINASTERIDE 5 MG TAB GTB (08:16)
[2018-07-25] MEDS: OXYBUTYNIN 5 MG TAB PO ×3 (08:16→21:40)
[2018-07-25] MEDS: DOCUSATE SODIUM 100 MG CAP PO ×2 (08:16→21:48)
[2018-07-25] MEDS: METOPROLOL (XL) 25 MG TAB PO ×2 (08:17→21:37)
[2018-07-25] MEDS: BALSAM PERU/CASTOR OIL 60 GM TUBE TOP (08:17)
[2018-07-25] MEDS: INSULIN GLARGINE [LANTus] (100 UNITS/ML) SYG SC ×2 (08:23→21:43)
[2018-07-25] MEDS: ALBUMIN HUMAN 25% 100 ML IV ×2 (13:00→23:13)
[2018-07-25] MEDS: FAMOTIDINE 20 MG INJ IV (15:00)
[2018-07-25] MEDS: SOD FERRIC GLUC COMPLX 125 MG in SOD CHLORIDE 0.9% 100 ML IVPB (17:44)
[2018-07-25] MEDS: HYDROCODONE/APAP (5/325) TAB PO (21:39)
[2018-07-26] MEDS: ACCU-CHEK XX (01:07)
[2018-07-26] MEDS: LEVALBUTEROL (NEB) 0.63 MG/3 ML AMP HHN ×3 (01:34→14:00)
[2018-07-26] MEDS: FUROSEMIDE 40 MG INJ IV (05:53)
[2018-07-26] MEDS: ALBUMIN HUMAN 25% 100 ML IV (05:54)
[2018-07-26] MEDS: HEPARIN 5,000 UNIT/0.5 ML VIAL SC ×2 (06:00→13:13)
[2018-07-26 06:18] LABS: ADD MAN DIFF? NO
[2018-07-26 06:21] LABS: ABNORMAL IP MESSAGE 1; BASOPHILS % 0.3 % (0.0-2.0); HEMATOCRIT 25.8 % (42.0-52.0); HEMOGLOBIN 7.8 g/dl (14.0-18.0); LYMPHOCYTES # 0.6 10^3/ul (0.8-2.9); LYMPHOCYTES % 20.6 % (15.0-51.0); MEAN CORPUSCULAR HEMOGLOBIN 30.1 pg (29.0-33.0); MEAN CORPUSCULAR HGB CONC 30.2 g/dl (32.0-37.0); MEAN CORPUSCULAR VOLUME 99.6 fl (82.0-101.0); MEAN PLATELET VOLUME 13.5 fl (7.4-10.4); MONOCYTE # 0.3 10^3/ul (0.3-0.9); MONOCYTES % 8.6 % (0.0-11.0); NEUTROPHILS % 64.9 % (39.0-77.0); NUCLEATED RED BLOOD CELLS% 0.7 /100WBC (0.0-0.0); PLATELET COUNT 125 10^3/UL (140-415); POSITIVE DIFF @See below; RED BLOOD COUNT 2.59 10^6/ul (4.70-6.10); RED CELL DISTRIBUTION WIDTH 16.3 % (11.5-14.5)
[2018-07-26 06:40] LABS: INR 1.12; PROTIME 14.6 Sec (11.9-14.9); PT RATIO 1.1
[2018-07-26 06:41] LABS: PARTIAL THROMBOPLASTIN TIME 45.8 Sec (23.0-35.0)
[2018-07-26 06:48] LABS: BLOOD UREA NITROGEN 28 mg/dl (7-20); CALCIUM 8.5 mg/dl (8.4-10.2); CARBON DIOXIDE 28 mmol/L (21-31); CHLORIDE 107 mmol/L (97-110); CREATININE 1.46 mg/dl (0.61-1.24); GLUCOSE 90 mg/dl (70-220); MAGNESIUM 2.2 mg/dl (1.7-2.5); PHOSPHORUS 3.6 mg/dl (2.5-4.9); POTASSIUM 3.4 mmol/L (3.5-5.1)
[2018-07-26 06:50] LABS: ALANINE AMINOTRANSFERASE 58 IU/L (13-69); ALBUMIN 2.8 g/dl (3.3-4.9); ALKALINE PHOSPHATASE 110 IU/L (42-121); ASPARTATE AMINO TRANSFERASE 47 IU/L (15-46); BILIRUBIN,INDIRECT 0.9 mg/dl (0-1.1); BILIRUBIN,TOTAL 0.9 mg/dl (0.2-1.3); TOTAL PROTEIN 5.2 g/dl (6.1-8.1)
[2018-07-26 07:00] LABS: ANION GAP 10 (8-16); SODIUM 142 mmol/L (135-144)
[2018-07-26 07:34] LABS: AADO2 Arterial 36.7 mmHg (7.0-24.0); Allen Test ACCEPTAB; Arterial Base Excess 0.1 mmol/L (-3.0-3); Arterial Blood Gas Oxygen Sat 94.8 mmHG (95.0-100.0); Arterial COHb 0.8 % (0.0-3.0); Arterial Fraction of Oxyhgb 93.7 % (93.0-99.0); Arterial HCO3 23.3 mmol/L (22.0-26.0); Arterial MetHb 0.4 % (0.0-1.5); Arterial Total Hemglobin 8.5 g/dl (12.0-18.0); Arterial pCO2 31.7 mmhg (35-45); MODE ROOM AIR; Site Left Radial
[2018-07-26] MEDS: INSULIN ASPART [NOVOLOG] 3 ML PEN SC ×4 (07:55→12:48)
[2018-07-26] MEDS: INSULIN GLARGINE [LANTus] (100 UNITS/ML) SYG SC (08:30)
[2018-07-26] MEDS: LINAGLIPTIN 5 MG TABLET PO (08:37)
[2018-07-26] MEDS: OXYBUTYNIN 5 MG TAB PO ×2 (08:37→13:08)
[2018-07-26] MEDS: TERBINAFINE 250 MG TAB PO (08:37)
[2018-07-26] MEDS: TAMSULOSIN (SR) 0.4 MG CAP PO (08:37)
[2018-07-26] MEDS: FINASTERIDE 5 MG TAB GTB (08:37)
[2018-07-26] MEDS: DOCUSATE SODIUM 100 MG CAP PO (08:37)
[2018-07-26] MEDS: ASPIRIN 81 MG TAB PO (08:37)
[2018-07-26] MEDS: POLYETHYLENE GLYCOL 17 GM PACKET PO (08:38)
[2018-07-26] MEDS: ALLOPURINOL 100 MG TAB PO (08:38)
[2018-07-26] MEDS: METOPROLOL (XL) 25 MG TAB PO (08:38)
[2018-07-26] MEDS: BALSAM PERU/CASTOR OIL 60 GM TUBE TOP (08:39)
[2018-07-26] MEDS: POTASSIUM CHLORIDE 20 MEQ POWDER FOR ORAL SOLN GTB (16:00)
[2018-07-26] MEDS: FAMOTIDINE 20 MG INJ IV (16:00)
[2018-07-26] MEDS ORDERED: EPOETIN 4000 UNITS/ML (NON ESRD/NON ONCOLOGY) SC (17:00)
[2018-07-27] MEDS ORDERED: INSULIN GLARGINE [LANTus] (100 UNITS/ML) SYG SC (09:00)
== END 2018-07-26 17:20 | DRG 252 ==
LOC: REC 06:02 → TEL 07-24 10:58 → ICU 13:05
PROC: 041L0ZN Bypass Left Femoral Artery to Posterior Tibial Artery, Open Approach (ICD-10-PCS; principal; 2018-07-04 07:29)
PROC: 04LL0ZZ Occlusion of Left Femoral Artery, Open Approach (ICD-10-PCS; 2018-07-04 07:29)
PROC: 06LN0ZZ Occlusion of Left Femoral Vein, Open Approach (ICD-10-PCS; 2018-07-04 07:29)
PROC: 0BH17EZ Insertion of Endotracheal Airway into Trachea, Via Natural or Artificial Opening (ICD-10-PCS; 2018-07-04 07:29)
PROC: 5A1955Z Respiratory Ventilation, Greater than 96 Consecutive Hours (ICD-10-PCS; 2018-07-04 07:29)
PROC: B54MZZA Ultrasonography of Right Upper Extremity Veins, Guidance (ICD-10-PCS; 2018-07-04 07:29)
PROC: 06HM33Z Insertion of Infusion Device into Right Femoral Vein, Percutaneous Approach (ICD-10-PCS; 2018-07-04 07:29)
PROC: B54BZZA Ultrasonography of Right Lower Extremity Veins, Guidance (ICD-10-PCS; 2018-07-04 07:29)
PROC: 0DJ08ZZ Inspection of Upper Intestinal Tract, Via Natural or Artificial Opening Endoscopic (ICD-10-PCS; 2018-07-04 07:29)
PROC: 02H633Z Insertion of Infusion Device into Right Atrium, Percutaneous Approach (ICD-10-PCS; 2018-07-04 07:29)
PROC: 4A133R1 Monitoring of Arterial Saturation, Peripheral, Percutaneous Approach (ICD-10-PCS; 2018-07-04 07:29)
PROC: 5A1D70Z Performance of Urinary Filtration, Intermittent, Less than 6 Hours Per Day (ICD-10-PCS; 2018-07-04 07:29)
PROC: 5A09357 Assistance with Respiratory Ventilation, Less than 24 Consecutive Hours, Continuous Positive Airway Pressure (ICD-10-PCS; 2018-07-04 07:29)
DX: E11.51 Type 2 diabetes mellitus with diabetic peripheral angiopathy without gangrene (principal); I21.A1 Myocardial infarction type 2; A41.9 Sepsis, unspecified organism; J96.01 Acute respiratory failure with hypoxia; N17.0 Acute kidney failure with tubular necrosis; R65.21 Severe sepsis with septic shock; J69.0 Pneumonitis due to inhalation of food and vomit; I50.33 Acute on chronic diastolic (congestive) heart failure; G93.40 Encephalopathy, unspecified; K29.61 Other gastritis with bleeding; K72.00 Acute and subacute hepatic failure without coma; D65 Disseminated intravascular coagulation [defibrination syndrome]; E87.2 Acidosis; D61.818 Other pancytopenia; K56.7 Ileus, unspecified; I13.0 Hypertensive heart and chronic kidney disease with heart failure and stage 1 through stage 4 chronic kidney disease, or unspecified chronic kidney disease; B37.49 Other urogenital candidiasis; E87.0 Hyperosmolality and hypernatremia; D68.59 Other primary thrombophilia; I70.222 Atherosclerosis of native arteries of extremities with rest pain, left leg; I82.512 Chronic embolism and thrombosis of left femoral vein; I82.621 Acute embolism and thrombosis of deep veins of right upper extremity; I70.211 Atherosclerosis of native arteries of extremities with intermittent claudication, right leg; D75.82 Heparin induced thrombocytopenia (HIT); N18.9 Chronic kidney disease, unspecified; E78.5 Hyperlipidemia, unspecified; K21.0 Gastro-esophageal reflux disease with esophagitis; Q27.32 Arteriovenous malformation of vessel of lower limb; J44.9 Chronic obstructive pulmonary disease, unspecified; E66.9 Obesity, unspecified; N40.1 Benign prostatic hyperplasia with lower urinary tract symptoms; R33.8 Other retention of urine; M10.9 Gout, unspecified; I27.29 Other secondary pulmonary hypertension; E83.51 Hypocalcemia; E83.42 Hypomagnesemia; D50.9 Iron deficiency anemia, unspecified; B35.1 Tinea unguium; I48.91 Unspecified atrial fibrillation; E11.42 Type 2 diabetes mellitus with diabetic polyneuropathy; E11.22 Type 2 diabetes mellitus with diabetic chronic kidney disease; E05.90 Thyrotoxicosis, unspecified without thyrotoxic crisis or storm; T38.0X5A Adverse effect of glucocorticoids and synthetic analogues, initial encounter; Y92.230 Patient room in hospital as the place of occurrence of the external cause; N50.89 Other specified disorders of the male genital organs; K42.9 Umbilical hernia without obstruction or gangrene; E11.65 Type 2 diabetes mellitus with hyperglycemia
CPT/HCPCS: 31500; 36569; 36600; 71045; 71250; 74018; 74176; 76700; 76775; 76937; 80048; 80053; 80061; 80076; 80202; 80307; 81001; 81003; 82150; 82306; 82330; 82533; 82550; 82553; 82570; 82728; 82803; 82962; 83010; 83540; 83605; 83615; 83690; 83735; 83880; 84100; 84134; 84260; 84300; 84436; 84443; 84479; 84484; 84560; 85014; 85018; 85025; 85045; 85049; 85362; 85378; 85384; 85576; 85610; 85613; 85651; 85670; 85730; 86021; 86022; 86038; 86140; 86160; 86162; 86692; 86704; 86706; 86709; 86803; 87040; 87070; 87081; 87086; 87340; 89190; 89220; 90935; 92526; 92610; 93005; 93306; 93922; 93965; 93970; 94002; 94003; 94640; 94660; 94664; 94770; 97110; 97116; 97162; 97164; 97165; 97168; 97530; 97535; J1120

== ENCOUNTER 2018-10-07 10:35 | Emergency (ER) | payer OTHER ==
[2018-10-07] MEDS: ENOXAPARIN 80 MG/0.8 ML SYG SC (13:53)
[2018-10-07 14:55] LABS: ADD MAN DIFF? NO
[2018-10-07 15:00] LABS: BASOPHILS % 0.3 % (0.0-2.0); HEMATOCRIT 37.9 % (42.0-52.0); HEMOGLOBIN 12.2 g/dl (14.0-18.0); LYMPHOCYTES # 0.9 10^3/ul (0.8-2.9); LYMPHOCYTES % 26.6 % (15.0-51.0); MEAN CORPUSCULAR HEMOGLOBIN 30.5 pg (29.0-33.0); MEAN CORPUSCULAR HGB CONC 32.2 g/dl (32.0-37.0); MEAN CORPUSCULAR VOLUME 94.8 fl (82.0-101.0); MONOCYTE # 0.4 10^3/ul (0.3-0.9); MONOCYTES % 12.4 % (0.0-11.0); NEUTROPHILS % 59.5 % (39.0-77.0); PLATELET COUNT 152 10^3/UL (140-415); RED CELL DISTRIBUTION WIDTH 14.2 % (11.5-14.5)
[2018-10-07 15:00] LABS: WHITE BLOOD COUNT 3.3 10^3/ul (4.8-10.8)
[2018-10-07 15:14] LABS: INR 1.01; PROTIME 13.4 Sec (11.9-14.9)
[2018-10-07 15:15] LABS: PARTIAL THROMBOPLASTIN TIME 41.9 Sec (23.0-35.0)
[2018-10-07 15:17] LABS: ALANINE AMINOTRANSFERASE 21 IU/L (13-69); ALBUMIN 3.6 g/dl (3.3-4.9); ALBUMIN/GLOBULIN RATIO 1.24; ALKALINE PHOSPHATASE 86 IU/L (42-121); ANION GAP 9 (5-13); ASPARTATE AMINO TRANSFERASE 25 IU/L (15-46); BILIRUBIN,INDIRECT 0.3 mg/dl (0-1.1); BILIRUBIN,TOTAL 0.3 mg/dl (0.2-1.3); BLOOD UREA NITROGEN 25 mg/dl (7-20); CALCIUM 8.9 mg/dl (8.4-10.2); CARBON DIOXIDE 24 mmol/L (21-31); CHLORIDE 110 mmol/L (97-110); CREATININE 1.18 mg/dl (0.61-1.24); GLUCOSE 86 mg/dl (70-220); POTASSIUM 4.5 mmol/L (3.5-5.1); SODIUM 143 mmol/L (135-144); TOTAL PROTEIN 6.5 g/dl (6.1-8.1)
[2018-10-07 15:28] LABS: TROPONIN-I < 0.012 ng/ml (0.000-0.120)
[2018-10-07] MEDS ORDERED: ONDANSETRON 4 MG INJ IV (15:30)
[2018-10-07] MEDS ORDERED: ACETAMINOPHEN 325 MG TAB PO (15:30)
== END 2018-10-07 17:00 | disposition home or self-care (01) ==
LOC: E/R 10:35
DX: I82.412 Acute embolism and thrombosis of left femoral vein (principal); I10 Essential (primary) hypertension; E66.9 Obesity, unspecified; R40.2252 Coma scale, best verbal response, oriented, at arrival to emergency department; R40.2362 Coma scale, best motor response, obeys commands, at arrival to emergency department; R40.2142 Coma scale, eyes open, spontaneous, at arrival to emergency department; Z68.27 Body mass index [BMI] 27.0-27.9, adult; Z79.82 Long term (current) use of aspirin; Z79.02 Long term (current) use of antithrombotics/antiplatelets
CPT/HCPCS: 36415; 71045; 80053; 84484; 85025; 85610; 85730; 93970; 96372; 99285-25